=== PATIENT | male | born 1965 | race Caucasian/White ===

== ENCOUNTER 2017-07-22 13:30 | Emergency (ER) | payer MEDICAID ==
[~2017-07-22] VITALS: Ht 170.2 cm; Wt 77.3 kg
[~2017-07-22 13:30] MED LIST: ACAM333T8 PO; AMYL1CAP56 PO; CHLO25CA10 PO; CITA-278 PO; DISU250T7 PO; FOLI1TAB16 PO; GABA-532 PO; HYDR-569 PO; INSU100V11 SQ; LANTUS SUBCUT; MULT-1179 PO; NICO-687 TD; PANT-47 PO; THI100T PO
[2017-07-22 13:52] VITALS: BP 134/86
[2017-07-22] MEDS ORDERED: insulin regular, human 10 units/0.1 ml syringe IV ONE (14:15)
[2017-07-22] MEDS ORDERED: normal saline 1000ML IV soln IV ONE (14:15)
[2017-07-22] MEDS ORDERED: insulin regular, human 10 units/0.1 ml syringe SQ ONE (14:40)
[2017-07-22] MEDS ORDERED: acetaminophen 325mg tablet PO ONE (14:50)
[2017-07-23] MEDS ORDERED: QUET300T19 (04:37)
[2017-07-23] MEDS ORDERED: TRAZ-146 (04:37)
[2017-07-23] MEDS ORDERED: LISI40TA4 (04:37)
[2017-07-23] MEDS ORDERED: LANTUS SQ (04:37)
[2017-07-23] MEDS ORDERED: INSU100C10 SQ (04:37)
== END 2017-07-22 15:37 | disposition left against medical advice (07) ==
LOC: ER 13:31
DX: E11.65 Type 2 diabetes mellitus with hyperglycemia (principal); E86.0 Dehydration; Z87.442 Personal history of urinary calculi; Z79.4 Long term (current) use of insulin; Z88.5 Allergy status to narcotic agent
CPT/HCPCS: 82948; 93005; 96372; 99283; J1815; J7030

== ENCOUNTER 2017-07-23 02:07 | Inpatient (IN) | payer MEDICAID ==
[~2017-07-23] VITALS: Ht 175.3 cm; Wt 72.7 kg
[2017-07-23] MEDS ORDERED: famotidine/PF 10 mg/ml inj IV ONE (02:40)
[2017-07-23] MEDS ORDERED: normal saline 1000ML IV soln IVB ONE ×3 (02:40→04:05)
[2017-07-23] MEDS ORDERED: ondansetron/PF 4mg/2ml inj IV ONE (02:40)
[2017-07-23 03:19] LABS: PROTHROMBIN TIME 10.4 SECONDS (9.0-12.0)
[2017-07-23 03:26] LABS: BASOPHILS % (AUTO) 0 % (0-1); EOSINOPHILS % (AUTO) 0 % (0-6); HEMATOCRIT 45.7 % (42.0-52.0); HEMOGLOBIN 15.4 g/dl (14.0-17.9); LYMPHOCYTES # (AUTO) 0.6 X10'3 (1.1-4.8); LYMPHOCYTES % (AUTO) 4.3 % (21-51); MEAN CORPUSCULAR HEMOGLOBIN 28.6 PG (27.0-31.0); MEAN CORPUSCULAR HGB CONC 33.8 % (33.0-36.5); MEAN CORPUSCULAR VOLUME 84.7 FL (78-98); MEAN PLATELET VOLUME 10.9 FL (7.4-10.4); MONOCYTES # (AUTO) 0.6 X10'3 (0-0.9); MONOCYTES % (AUTO) 3.7 % (2-12); NEUTROPHILS # (AUTO) 13.7 X10'3 (1.8-7.7); PLATELET COUNT 271 X10'3 (140-440); RED CELL DISTRIBUTION WIDTH 13.5 % (11.5-14.5); WHITE BLOOD COUNT 14.9 X10'3 (4.5-11.0)
[2017-07-23 03:42] LABS: ALANINE AMINOTRANSFERASE 17 U/L (12-78); ALBUMIN 3.5 G/DL (3.4-5.0); ALBUMIN/GLOBULIN RATIO 0.7 (1.1-1.5); ALKALINE PHOSPHATASE 157 IU/L (46-116); ANION GAP 21 (8-16); ASPARTATE AMINO TRANSFERASE 17 U/L (10-37); BILIRUBIN,TOTAL 1.7 MG/DL (0.1-1.0); BLOOD UREA NITROGEN 41 MG/DL (7-18); BUN/CREATININE RATIO 18.2 (5.4-32.0); CALCIUM 10.8 MG/DL (8.5-10.1); CHLORIDE 80 MMOL/L (99-107); CREATININE 2.25 MG/DL (0.60-1.10); ETHANOL 0.022 GM/DL (0.0-0.010); LIPASE < 50 U/L (73-393); SODIUM 121 MMOL/L (135-145); TOTAL CARBON DIOXIDE 19.8 MMOL/L (24-32); TOTAL PROTEIN 8.7 G/DL (6.4-8.2); eGFR 31 ML/MIN
[2017-07-23 03:49] LABS: GLUCOSE 703 MG/DL (70-104); POTASSIUM 6.1 MMOL/L (3.5-5.1)
[2017-07-23] MEDS ORDERED: insulin regular, human 10 units/0.1 ml syringe IV ONE (04:05)
[2017-07-23] MEDS ORDERED: QUET300T19 (04:37)
[2017-07-23] MEDS ORDERED: LANTUS SQ (04:37)
[2017-07-23] MEDS ORDERED: LISI40TA4 (04:37)
[2017-07-23] MEDS ORDERED: TRAZ-146 (04:37)
[2017-07-23] MEDS ORDERED: INSU100C10 SQ (04:37)
[2017-07-23 05:08] LABS: URINE AMPHETAMINE SCREEN NEGATIVE (Neg); URINE BARBITUATE SCREEN NEGATIVE (Neg); URINE BENZODIAZEPINES SCREEN NEGATIVE (Neg); URINE CANNABINOID SCREEN NEGATIVE (Neg); URINE COCAINE SCREEN NEGATIVE (Neg); URINE METHADONE SCREEN NEGATIVE (Neg); URINE OPIATE SCREEN NEGATIVE (Neg); URINE PHENCYCLIDINE SCREEN NEGATIVE (Neg)
[2017-07-23] MEDS ORDERED: acetaminophen 325mg tablet PO PRN (05:25)
[2017-07-23] MEDS ORDERED: mag hydrox/Alum hydrox/simeth 30ml oral suspension PO PRN (05:25)
[2017-07-23] MEDS ORDERED: magnesium hydroxide 30ml (MOM) UD suspension PO PRN (05:25)
[2017-07-23] MEDS ORDERED: ondansetron/PF 4mg/2ml inj IV PRN (05:25)
[2017-07-23 05:30] VITALS: BP 141/88
[2017-07-23] MEDS ORDERED: MESSAGE TO PHARMACY PO ONE (05:40)
[2017-07-23] MEDS ORDERED: dextrose ORAL solution 15 GM/59 ML bottle PO PRN ×2 (05:40)
[2017-07-23] MEDS ORDERED: dextrose 50%-water 50ml dispensing syringe IV PRN ×3 (05:40→12:15)
[2017-07-23] MEDS ORDERED: glucagon, human recombinant 1mg kit SUBCUT PRN (05:40)
[2017-07-23] MEDS ORDERED: insulin glargine (Lantus) pen - multi-dose SQ ONE (05:45)
[2017-07-23] MEDS: normal saline 1000ml 1,000 ML IV SCH ×3 (05:45→23:52)
[2017-07-23] MEDS: citalopram 20mg tablet PO SCH (07:41)
[2017-07-23] MEDS: gabapentin 300mg capsule PO SCH ×2 (07:42→16:57)
[2017-07-23] MEDS: heparin, porcine 5000 units/ml vial SQ SCH ×2 (07:42→20:25)
[2017-07-23] MEDS: insulin Lispro (HumaLOG) vial - multi-dose SQ SCH (07:43)
[2017-07-23 10:08] LABS: ALBUMIN 2.7 G/DL (3.4-5.0); ANION GAP 13 (8-16); BLOOD UREA NITROGEN 32 MG/DL (7-18); BUN/CREATININE RATIO 23.4 (5.4-32.0); CALCIUM 8.8 MG/DL (8.5-10.1); CHLORIDE 97 MMOL/L (99-107); CREATININE 1.37 MG/DL (0.60-1.10); GLUCOSE 300 MG/DL (70-104); POTASSIUM 4.3 MMOL/L (3.5-5.1); SODIUM 133 MMOL/L (135-145); TOTAL CARBON DIOXIDE 23.4 MMOL/L (24-32); eGFR 55 ML/MIN
[2017-07-23 11:00] VITALS: BP 142/90
[2017-07-23] MEDS ORDERED: haloperidol lactate 5mg/ml inj IM PRN (12:15)
[2017-07-23] MEDS ORDERED: thiamine 100mg/ml 2ml inj. IV ONE (12:15)
[2017-07-23] MEDS ORDERED: thiamine inj. 100 MG in normal saline 100ml IV soln 100 ML IV ONE (12:25)
[2017-07-23 15:00] VITALS: BP 132/80
[2017-07-23 19:00] VITALS: BP 149/81
[2017-07-23] MEDS: thiamine 100mg tablet PO SCH (20:24)
[2017-07-23] MEDS ORDERED: insulin glargine (Lantus) pen - multi-dose SQ SCH (21:00)
[2017-07-23] MEDS: insulin glargine (Lantus) pen - multi-dose SQ SCH (21:00)
[2017-07-23 23:00] VITALS: BP 154/83
[2017-07-24] VITALS (7 sets, daily range): BP systolic 100–156; BP diastolic 67–90
[2017-07-24] MEDS: LORazepam 2 mg/ml vial IV PRN ×8 (02:56→22:35)
[2017-07-24] MEDS: haloperidol 5mg tablet PO PRN (04:41)
[2017-07-24 06:06] LABS: BASOPHILS % (AUTO) 0.3 % (0-1); EOSINOPHILS # (AUTO) 0.1 X10'3 (0-0.9); HEMATOCRIT 39.9 % (42.0-52.0); HEMOGLOBIN 13.6 g/dl (14.0-17.9); LYMPHOCYTES # (AUTO) 0.8 X10'3 (1.1-4.8); LYMPHOCYTES % (AUTO) 10.5 % (21-51); MEAN CORPUSCULAR HEMOGLOBIN 28.9 PG (27.0-31.0); MEAN CORPUSCULAR VOLUME 85.1 FL (78-98); MEAN PLATELET VOLUME 11.3 FL (7.4-10.4); MONOCYTES # (AUTO) 0.5 X10'3 (0-0.9); MONOCYTES % (AUTO) 6.2 % (2-12); NEUTROPHILS # (AUTO) 6.6 X10'3 (1.8-7.7); PLATELET COUNT 160 X10'3 (140-440); RED BLOOD COUNT 4.69 X10'6 (4.70-6.10); RED CELL DISTRIBUTION WIDTH 13.1 % (11.5-14.5); WHITE BLOOD COUNT 8.1 X10'3 (4.5-11.0)
[2017-07-24 06:33] LABS: ALANINE AMINOTRANSFERASE 16 U/L (12-78); ALBUMIN 2.6 G/DL (3.4-5.0); ALBUMIN/GLOBULIN RATIO 0.6 (1.1-1.5); ALKALINE PHOSPHATASE 110 IU/L (46-116); ANION GAP 10 (8-16); ASPARTATE AMINO TRANSFERASE 16 U/L (10-37); BILIRUBIN,TOTAL 1.1 MG/DL (0.1-1.0); BLOOD UREA NITROGEN 23 MG/DL (7-18); BUN/CREATININE RATIO 22.5 (5.4-32.0); CALCIUM 8.6 MG/DL (8.5-10.1); CHLORIDE 101 MMOL/L (99-107); CREATININE 1.02 MG/DL (0.60-1.10); GLUCOSE 234 MG/DL (70-104); SODIUM 136 MMOL/L (135-145); TOTAL CARBON DIOXIDE 24.6 MMOL/L (24-32); TOTAL PROTEIN 6.8 G/DL (6.4-8.2); eGFR 78 ML/MIN
[2017-07-24] MEDS: folic acid 1mg tablet PO SCH (07:22)
[2017-07-24] MEDS: thiamine 100mg tablet PO SCH ×2 (07:22→20:48)
[2017-07-24] MEDS: gabapentin 300mg capsule PO SCH ×3 (07:22→17:04)
[2017-07-24] MEDS: citalopram 20mg tablet PO SCH (07:22)
[2017-07-24] MEDS: heparin, porcine 5000 units/ml vial SQ SCH ×2 (07:23→20:48)
[2017-07-24] MEDS: insulin Lispro (HumaLOG) vial - multi-dose SQ SCH ×2 (07:33→18:51)
[2017-07-24] MEDS ORDERED: pantoprazole 40 MG vial IV ONE (14:10)
[2017-07-24] MEDS: HYDROcodone/acetaminophen 5mg/325mg tablet PO PRN ×2 (15:07→21:23)
[2017-07-24] MEDS ORDERED: clindamycin 600mg/D5W 50ml 50 ML IV ONE (17:50)
[2017-07-24] MEDS: nicotine 14mg patch - 24hr TD SCH (18:32)
[2017-07-24] MEDS: clindamycin 600mg/D5W 50ml 50 ML IV SCH (20:47)
[2017-07-24] MEDS: insulin glargine (Lantus) pen - multi-dose SQ SCH (21:18)
[2017-07-24] MEDS: normal saline 1000ml 1,000 ML IV SCH (21:25)
[2017-07-25] MEDS: gabapentin 300mg capsule PO SCH ×3 (00:08→15:26)
[2017-07-25] MEDS: LORazepam 2 mg/ml vial IV PRN ×7 (00:08→09:04)
[2017-07-25] MEDS: haloperidol 5mg tablet PO PRN (00:54)
[2017-07-25] MEDS: clindamycin 600mg/D5W 50ml 50 ML IV SCH ×4 (01:33→19:15)
[2017-07-25 03:00] VITALS: BP 163/88
[2017-07-25] MEDS: HYDROcodone/acetaminophen 5mg/325mg tablet PO PRN ×3 (04:39→17:50)
[2017-07-25 05:33] LABS: BASOPHILS % (AUTO) 0.2 % (0-1); EOSINOPHILS % (AUTO) 0.5 % (0-6); HEMATOCRIT 35.2 % (42.0-52.0); LYMPHOCYTES # (AUTO) 0.6 X10'3 (1.1-4.8); LYMPHOCYTES % (AUTO) 9.4 % (21-51); MEAN CORPUSCULAR HEMOGLOBIN 28.8 PG (27.0-31.0); MEAN CORPUSCULAR HGB CONC 34.1 % (33.0-36.5); MEAN CORPUSCULAR VOLUME 84.5 FL (78-98); MEAN PLATELET VOLUME 10.9 FL (7.4-10.4); MONOCYTES # (AUTO) 0.4 X10'3 (0-0.9); MONOCYTES % (AUTO) 5.9 % (2-12); NEUTROPHILS # (AUTO) 5.2 X10'3 (1.8-7.7); PLATELET COUNT 107 X10'3 (140-440); RED BLOOD COUNT 4.16 X10'6 (4.70-6.10); RED CELL DISTRIBUTION WIDTH 13.4 % (11.5-14.5); WHITE BLOOD COUNT 6.2 X10'3 (4.5-11.0)
[2017-07-25 06:00] VITALS: BP 141/74
[2017-07-25 06:00] LABS: ALANINE AMINOTRANSFERASE 13 U/L (12-78); ALBUMIN 2.2 G/DL (3.4-5.0); ALBUMIN/GLOBULIN RATIO 0.6 (1.1-1.5); ALKALINE PHOSPHATASE 100 IU/L (46-116); ANION GAP 12 (8-16); ASPARTATE AMINO TRANSFERASE 10 U/L (10-37); BILIRUBIN,TOTAL 0.6 MG/DL (0.1-1.0); BLOOD UREA NITROGEN 16 MG/DL (7-18); BUN/CREATININE RATIO 13.6 (5.4-32.0); CHLORIDE 96 MMOL/L (99-107); CREATININE 1.18 MG/DL (0.60-1.10); GLUCOSE 445 MG/DL (70-104); POTASSIUM 4.1 MMOL/L (3.5-5.1); SODIUM 130 MMOL/L (135-145); TOTAL CARBON DIOXIDE 22.4 MMOL/L (24-32); TOTAL PROTEIN 5.9 G/DL (6.4-8.2); eGFR 66 ML/MIN
[2017-07-25 07:09] LABS: LARGE PLATELETS FEW; PLATELET ESTIMATE DECREASED
[2017-07-25] MEDS: pantoprazole 40 MG vial IV SCH (07:28)
[2017-07-25] MEDS: nicotine 14mg patch - 24hr TD SCH (07:28)
[2017-07-25] MEDS: folic acid 1mg tablet PO SCH (07:28)
[2017-07-25] MEDS: thiamine 100mg tablet PO SCH ×2 (07:28→19:15)
[2017-07-25] MEDS: citalopram 20mg tablet PO SCH (07:28)
[2017-07-25] MEDS: heparin, porcine 5000 units/ml vial SQ SCH ×2 (07:29→19:16)
[2017-07-25] MEDS: insulin Lispro (HumaLOG) vial - multi-dose SQ SCH ×3 (08:10→19:23)
[2017-07-25 11:00] VITALS: BP 126/63
[2017-07-25] MEDS: normal saline 1000ml 1,000 ML IV SCH (11:14)
[2017-07-25] MEDS ORDERED: LORazepam 2 mg/ml vial IV PRN (12:15)
[2017-07-25] MEDS ORDERED: morphine 2 MG/ML inj. syringe IV PRN (14:50)
[2017-07-25 15:00] VITALS: BP 113/67
[2017-07-25] MEDS ORDERED: iohexol 300mg/ml 100ml inj. ONE (15:37)
[2017-07-25 19:00] VITALS: BP 129/63
[2017-07-25] MEDS: lactobacillus rhamnosus 10,000 MMU CELLS/CAPSULE PO SCH (19:15)
[2017-07-25] MEDS ORDERED: morphine 4 MG/ML inj SYRINge IV PRN (19:28)
[2017-07-25] MEDS: LORazepam 1 MG tablet PO PRN ×2 (20:42→22:37)
[2017-07-25] MEDS: morphine 4 MG/ML inj SYRINge IV PRN (21:17)
[2017-07-25 23:00] VITALS: BP 143/89
[2017-07-26] VITALS (11 sets, daily range): BP systolic 92–144; BP diastolic 53–84
[2017-07-26] MEDS: gabapentin 300mg capsule PO SCH ×3 (00:06→16:55)
[2017-07-26] MEDS: morphine 4 MG/ML inj SYRINge IV PRN ×8 (00:06→23:11)
[2017-07-26] MEDS: HYDROcodone/acetaminophen 5mg/325mg tablet PO PRN ×2 (01:11→19:20)
[2017-07-26] MEDS: normal saline 1000ml 1,000 ML IV SCH ×2 (01:12→13:16)
[2017-07-26] MEDS: clindamycin 600mg/D5W 50ml 50 ML IV SCH ×4 (01:13→20:58)
[2017-07-26 07:15] LABS: BASOPHILS % (AUTO) 0.4 % (0-1); EOSINOPHILS # (AUTO) 0.1 X10'3 (0-0.9); EOSINOPHILS % (AUTO) 1.8 % (0-6); HEMATOCRIT 34.5 % (42.0-52.0); HEMOGLOBIN 11.7 g/dl (14.0-17.9); LYMPHOCYTES # (AUTO) 0.7 X10'3 (1.1-4.8); LYMPHOCYTES % (AUTO) 8.8 % (21-51); MEAN CORPUSCULAR HEMOGLOBIN 28.9 PG (27.0-31.0); MEAN CORPUSCULAR HGB CONC 33.9 % (33.0-36.5); MEAN CORPUSCULAR VOLUME 85.2 FL (78-98); MEAN PLATELET VOLUME 10.9 FL (7.4-10.4); MONOCYTES # (AUTO) 0.6 X10'3 (0-0.9); MONOCYTES % (AUTO) 7.7 % (2-12); NEUTROPHILS # (AUTO) 6.3 X10'3 (1.8-7.7); NEUTROPHILS % (AUTO) 81.3 % (42-75); PLATELET COUNT 115 X10'3 (140-440); RED BLOOD COUNT 4.04 X10'6 (4.70-6.10); RED CELL DISTRIBUTION WIDTH 13.4 % (11.5-14.5); WHITE BLOOD COUNT 7.8 X10'3 (4.5-11.0)
[2017-07-26 07:48] LABS: ALANINE AMINOTRANSFERASE 8 U/L (12-78); ALBUMIN 1.9 G/DL (3.4-5.0); ALBUMIN/GLOBULIN RATIO 0.5 (1.1-1.5); ALKALINE PHOSPHATASE 91 IU/L (46-116); ANION GAP 8 (8-16); ASPARTATE AMINO TRANSFERASE 10 U/L (10-37); BILIRUBIN,TOTAL 0.6 MG/DL (0.1-1.0); BLOOD UREA NITROGEN 11 MG/DL (7-18); BUN/CREATININE RATIO 12.6 (5.4-32.0); CALCIUM 8.1 MG/DL (8.5-10.1); CHLORIDE 102 MMOL/L (99-107); CREATININE 0.87 MG/DL (0.60-1.10); GLUCOSE 223 MG/DL (70-104); POTASSIUM 3.6 MMOL/L (3.5-5.1); SODIUM 137 MMOL/L (135-145); TOTAL CARBON DIOXIDE 26.7 MMOL/L (24-32); TOTAL PROTEIN 5.6 G/DL (6.4-8.2); eGFR > 90 ML/MIN
[2017-07-26] MEDS: thiamine 100mg tablet PO SCH ×2 (07:50→20:57)
[2017-07-26] MEDS: folic acid 1mg tablet PO SCH (07:50)
[2017-07-26] MEDS: citalopram 20mg tablet PO SCH (07:50)
[2017-07-26] MEDS: nicotine 14mg patch - 24hr TD SCH (07:50)
[2017-07-26] MEDS: pantoprazole 40 MG vial IV SCH (07:50)
[2017-07-26] MEDS: lactobacillus rhamnosus 10,000 MMU CELLS/CAPSULE PO SCH ×2 (08:00→20:57)
[2017-07-26] MEDS ORDERED: fentaNYL/PF 50MCG/1 ML 2ML syringe ONE (11:12)
[2017-07-26] MEDS ORDERED: midazolam 2 mg/2 ml injection ONE (11:12)
[2017-07-26] MEDS ORDERED: LIDOcaine 1.5% w/epinephrine 1:200,000 5ml ampul ONE (11:16)
[2017-07-26] MEDS ORDERED: LIDOcaine 0.5% W/epiNEPHrine 1:200,000 50ml vial IJ ONE (11:17)
[2017-07-26] MEDS ORDERED: morphine 4 MG/ML inj SYRINge IV PRN ×2 (12:00)
[2017-07-26] MEDS ORDERED: ringers solution, lacted 1,000 ML IV SCH (12:00)
[2017-07-26] MEDS ORDERED: proCHLORperazine 10 MG/2 ml inj IV PRN (12:00)
[2017-07-26] MEDS ORDERED: meperidine/PF 25mg/ml syringe IV PRN ×3 (12:00)
[2017-07-26] MEDS ORDERED: ondansetron/PF 4mg/2ml inj IV PRN (12:00)
[2017-07-26] MEDS ORDERED: LIDOcaine 2% (20mg/ml) 5ml vial ONE (12:23)
[2017-07-26] MEDS ORDERED: propofol inj 20 ML IV ONE (12:23)
[2017-07-26] MEDS: insulin Lispro (HumaLOG) vial - multi-dose SQ SCH ×2 (13:50→19:15)
[2017-07-26] MEDS: insulin glargine (Lantus) pen - multi-dose SQ SCH (21:00)
[2017-07-27] MEDS: gabapentin 300mg capsule PO SCH (00:39)
[2017-07-27] MEDS: LORazepam 1 MG tablet PO PRN (00:39)
[2017-07-27] MEDS: morphine 4 MG/ML inj SYRINge IV PRN ×3 (02:24→06:51)
[2017-07-27] MEDS: clindamycin 600mg/D5W 50ml 50 ML IV SCH (02:26)
[2017-07-27 03:00] VITALS: BP 122/71
[2017-07-27 06:00] VITALS: BP 109/66
[2017-07-27 06:31] LABS: BASOPHILS % (AUTO) 0.6 % (0-1); EOSINOPHILS # (AUTO) 0.1 X10'3 (0-0.9); EOSINOPHILS % (AUTO) 2.3 % (0-6); HEMOGLOBIN 10.5 g/dl (14.0-17.9); LYMPHOCYTES # (AUTO) 0.8 X10'3 (1.1-4.8); LYMPHOCYTES % (AUTO) 13.5 % (21-51); MEAN CORPUSCULAR HEMOGLOBIN 28.8 PG (27.0-31.0); MEAN CORPUSCULAR HGB CONC 33.8 % (33.0-36.5); MEAN CORPUSCULAR VOLUME 85.1 FL (78-98); MEAN PLATELET VOLUME 10.7 FL (7.4-10.4); MONOCYTES # (AUTO) 0.5 X10'3 (0-0.9); MONOCYTES % (AUTO) 8.4 % (2-12); NEUTROPHILS # (AUTO) 4.3 X10'3 (1.8-7.7); NEUTROPHILS % (AUTO) 75.2 % (42-75); PLATELET COUNT 109 X10'3 (140-440); RED BLOOD COUNT 3.65 X10'6 (4.70-6.10); RED CELL DISTRIBUTION WIDTH 13.1 % (11.5-14.5); WHITE BLOOD COUNT 5.8 X10'3 (4.5-11.0)
[2017-07-27 06:46] LABS: ALANINE AMINOTRANSFERASE 10 U/L (12-78); ALBUMIN 1.7 G/DL (3.4-5.0); ALBUMIN/GLOBULIN RATIO 0.5 (1.1-1.5); ALKALINE PHOSPHATASE 91 IU/L (46-116); ANION GAP 5 (8-16); ASPARTATE AMINO TRANSFERASE 7 U/L (10-37); BILIRUBIN,TOTAL 0.3 MG/DL (0.1-1.0); BLOOD UREA NITROGEN 11 MG/DL (7-18); BUN/CREATININE RATIO 13.4 (5.4-32.0); CHLORIDE 100 MMOL/L (99-107); CREATININE 0.82 MG/DL (0.60-1.10); GLUCOSE 405 MG/DL (70-104); POTASSIUM 4.3 MMOL/L (3.5-5.1); SODIUM 130 MMOL/L (135-145); TOTAL CARBON DIOXIDE 25.1 MMOL/L (24-32); TOTAL PROTEIN 5.3 G/DL (6.4-8.2); eGFR > 90 ML/MIN
[2017-07-27] MEDS ORDERED: pantoprazole 40mg Tablet.DR PO SCH (07:30)
[2017-07-27] MEDS ORDERED: LORazepam 2 mg/ml vial IV PRN (12:15)
[2017-07-27] MEDS ORDERED: LORazepam 1 MG tablet PO PRN (12:15)
== END 2017-07-27 07:30 | disposition left against medical advice (07) | DRG 364 ==
LOC: ER 02:07 → ED HOLD 05:25 → PCU 3S 06:00
PROVIDERS: ADMIT Internal Medicine; ATTEND Family Medicine
PROC: 0J9F0ZZ Drainage of Left Upper Arm Subcutaneous Tissue and Fascia, Open Approach (ICD-10-PCS; principal; 2017-07-26)
DX: L03.114 Cellulitis of left upper limb (principal); E11.00 Type 2 diabetes mellitus with hyperosmolarity without nonketotic hyperglycemic-hyperosmolar coma (NKHHC); N17.9 Acute kidney failure, unspecified; E11.65 Type 2 diabetes mellitus with hyperglycemia; E87.1 Hypo-osmolality and hyponatremia; K29.20 Alcoholic gastritis without bleeding; E11.10 Type 2 diabetes mellitus with ketoacidosis without coma; E87.5 Hyperkalemia; Z53.21 Procedure and treatment not carried out due to patient leaving prior to being seen by health care provider; L02.414 Cutaneous abscess of left upper limb; F15.90 Other stimulant use, unspecified, uncomplicated; N28.9 Disorder of kidney and ureter, unspecified; F17.200 Nicotine dependence, unspecified, uncomplicated; Z88.8 Allergy status to other drugs, medicaments and biological substances; Z79.4 Long term (current) use of insulin
CPT/HCPCS: 36415; 71045; 73201; 80048; 80053; 80305; 80320; 82009; 82948; 83036; 83690; 84484; 85025; 85610; 87070; 87075; 87186; 93005; 93306; 96361; 96374; 96375; 99285; A6258; A6449; C9113; J1644; J1815; J2001; J2060; J2175; J2250; J2270; J2405; J2704; J3010; J3411; J3490; J7030; J7120; Q9967

== ENCOUNTER 2017-07-27 21:41 | Emergency (ER) | payer MEDICAID ==
[~2017-07-27 21:41] MED LIST changes: -ACAM333T8 PO; -AMYL1CAP56 PO; -CHLO25CA10 PO; -DISU250T7 PO; -FOLI1TAB16 PO; -HYDR-569 PO; +INSU100C10 SQ; -INSU100V11 SQ; +LANTUS SQ; -LANTUS SUBCUT; +LISI40TA4; -NICO-687 TD; -PANT-47 PO; +QUET300T19; -THI100T PO; +TRAZ-146
== END 2017-07-27 23:31 | disposition left against medical advice (07) ==
LOC: ER 21:41
DX: R50.9 Fever, unspecified (principal); L08.9 Local infection of the skin and subcutaneous tissue, unspecified; Z53.21 Procedure and treatment not carried out due to patient leaving prior to being seen by health care provider

== ENCOUNTER 2017-08-08 21:20 | Emergency (ER) | payer MEDICAID ==
[~2017-08-08] VITALS: Ht 175.3 cm; Wt 52.6 kg
[2017-08-08] MEDS ORDERED: LIDOcaine 1.5% w/epinephrine 1:200,000 5ml ampul IJ ONE (21:50)
[2017-08-08] MEDS ORDERED: HYDROcodone/acetaminophen 10/325mg tab PO ONE ×2 (22:05→23:05)
[2017-08-08] MEDS ORDERED: ondansetron 4mg rapidly disintigrating tab PO ONE (22:05)
[2017-08-08] MEDS ORDERED: insulin regular, human 10 units/0.1 ml syringe SQ ONE (22:20)
[2017-08-08] MEDS ORDERED: doxycycline hyclate 100mg tablet.DR PO STA (23:04)
[2017-08-08] MEDS ORDERED: cephalexin 500mg capsule PO ONE (23:05)
[2017-08-08] MEDS ORDERED: CefTRIAXone 1000mg IM Kit (w/lidocaine diluent) IM ONE (23:05)
[2017-08-08] MEDS ORDERED: DOXY100C43 PO (23:21)
[2017-08-08] MEDS ORDERED: CEPH500C2 PO (23:21)
[2017-08-08 23:48] VITALS: BP 111/57
[2017-08-09] MEDS ORDERED: IBUP-1985 PO (12:14)
== END 2017-08-08 23:57 | disposition home or self-care (01) ==
LOC: ER 21:20
DX: L02.415 Cutaneous abscess of right lower limb (principal); E11.65 Type 2 diabetes mellitus with hyperglycemia; G43.909 Migraine, unspecified, not intractable, without status migrainosus; F11.90 Opioid use, unspecified, uncomplicated; Z98.890 Other specified postprocedural states; Z88.8 Allergy status to other drugs, medicaments and biological substances; Z79.2 Long term (current) use of antibiotics; Z79.4 Long term (current) use of insulin; Z79.899 Other long term (current) drug therapy
CPT/HCPCS: 10061; 82948; 87070; 96372; 99284; A6266; A6449; J0696; J1815; J3490

== ENCOUNTER 2017-08-09 11:38 | Emergency (ER) | payer MEDICAID ==
[~2017-08-09] VITALS: Ht 175.3 cm; Wt 63.6 kg
[~2017-08-09 11:38] MED LIST changes: +CEPH500C2 PO; +DOXY100C43 PO
[2017-08-09 11:43] VITALS: BP 92/52
[2017-08-09] MEDS ORDERED: IBUP-1985 PO (12:14)
== END 2017-08-09 12:28 | disposition home or self-care (01) ==
LOC: ER 11:39
DX: L02.31 Cutaneous abscess of buttock (principal); G43.909 Migraine, unspecified, not intractable, without status migrainosus; E11.9 Type 2 diabetes mellitus without complications; F11.10 Opioid abuse, uncomplicated; Z88.6 Allergy status to analgesic agent; Z79.4 Long term (current) use of insulin
CPT/HCPCS: 99282; A6253; A6449; A6255; A6257

== ENCOUNTER 2017-08-10 13:25 | Emergency (ER) | payer MEDICAID ==
[~2017-08-10] VITALS: Ht 175.3 cm; Wt 68.2 kg
[~2017-08-10 13:25] MED LIST changes: +IBUP-1985 PO
[2017-08-10] MEDS ORDERED: LIDOcaine 40mg/ml topical solution MM ONE (13:55)
[2017-08-10] MEDS ORDERED: morphine 4 MG/ML inj SYRINge IM ONE (13:55)
[2017-08-10] MEDS ORDERED: LIDOcaine 4% (40 mg/ml) topical solution 50ml MM ONE (14:00)
[2017-08-10 14:54] VITALS: BP 116/60
== END 2017-08-10 14:55 | disposition home or self-care (01) ==
LOC: ER 13:25
DX: S71.001D Unspecified open wound, right hip, subsequent encounter (principal); G43.909 Migraine, unspecified, not intractable, without status migrainosus; E11.9 Type 2 diabetes mellitus without complications; F17.200 Nicotine dependence, unspecified, uncomplicated; Z87.442 Personal history of urinary calculi; Z86.14 Personal history of Methicillin resistant Staphylococcus aureus infection; Z98.890 Other specified postprocedural states; Z88.8 Allergy status to other drugs, medicaments and biological substances; Z79.4 Long term (current) use of insulin; Z79.899 Other long term (current) drug therapy; X58.XXXD Exposure to other specified factors, subsequent encounter
CPT/HCPCS: 96372; 99283; A6253; A6266; A6449; J2270; J2001

== ENCOUNTER 2017-09-15 13:41 | Emergency (ER) | payer MEDICAID ==
[~2017-09-15] VITALS: Ht 175.3 cm; Wt 56.7 kg
[~2017-09-15 13:41] MED LIST changes: -CEPH500C2 PO; -DOXY100C43 PO; -IBUP-1985 PO; +IBUP-1986 PO; -LISI40TA4; +LISI40TA4 PO; +PER5325T PO; -QUET300T19; +QUET300T19 PO; -TRAZ-146; +TRAZ-146 PO
[2017-09-15 14:03] VITALS: BP 123/80
== END 2017-09-15 14:30 | disposition left against medical advice (07) ==
LOC: ER 13:42
DX: Z53.21 Procedure and treatment not carried out due to patient leaving prior to being seen by health care provider (principal)

== ENCOUNTER 2017-11-03 15:02 | Inpatient (IN) | payer MEDICAID ==
[~2017-11-03] VITALS: Ht 175.3 cm; Wt 72.7 kg
[~2017-11-03 15:02] MED LIST changes: -PER5325T PO; -TRAZ-146 PO; +TRAZ-219 PO
[2017-11-03] MEDS ORDERED: normal saline 1000ml 1,000 ML IV ONE ×2 (15:10→17:30)
[2017-11-03] MEDS ORDERED: normal saline 1000ML IV soln IVB ONE (15:10)
[2017-11-03 16:26] LABS: BASOPHILS % (AUTO) 0.4 % (0-1); EOSINOPHILS # (AUTO) 0.1 X10'3 (0-0.9); EOSINOPHILS % (AUTO) 1.3 % (0-6); HEMATOCRIT 38.2 % (42.0-52.0); HEMOGLOBIN 12.9 g/dl (14.0-17.9); LYMPHOCYTES % (AUTO) 10.4 % (21-51); MEAN CORPUSCULAR HEMOGLOBIN 28.4 PG (27.0-31.0); MEAN CORPUSCULAR HGB CONC 33.8 % (33.0-36.5); MEAN CORPUSCULAR VOLUME 84.3 FL (78-98); MEAN PLATELET VOLUME 10.2 FL (7.4-10.4); MONOCYTES # (AUTO) 0.6 X10'3 (0-0.9); MONOCYTES % (AUTO) 6.2 % (2-12); NEUTROPHILS # (AUTO) 7.8 X10'3 (1.8-7.7); NEUTROPHILS % (AUTO) 81.7 % (42-75); PLATELET COUNT 172 X10'3 (140-440); RED BLOOD COUNT 4.54 X10'6 (4.70-6.10); RED CELL DISTRIBUTION WIDTH 15.1 % (11.5-14.5); WHITE BLOOD COUNT 9.5 X10'3 (4.5-11.0)
[2017-11-03 16:36] LABS: PARTIAL THROMBOPLASTIN TIME 27 SECONDS (22-32); PROTHROMBIN TIME 10.8 SECONDS (9.0-12.0)
[2017-11-03 16:46] LABS: ALANINE AMINOTRANSFERASE 14 U/L (12-78); ALBUMIN/GLOBULIN RATIO 0.7 (1.1-1.5); ALKALINE PHOSPHATASE 118 IU/L (46-116); AMYLASE 26 U/L (25-115); ANION GAP 6 (8-16); ASPARTATE AMINO TRANSFERASE 17 U/L (10-37); BILIRUBIN,TOTAL 0.5 MG/DL (0.1-1.0); BLOOD UREA NITROGEN 61 MG/DL (7-18); BUN/CREATININE RATIO 19.1 (5.4-32.0); CALCIUM 9.3 MG/DL (8.5-10.1); CHLORIDE 84 MMOL/L (99-107); CREATININE 3.19 MG/DL (0.60-1.10); ETHANOL < 0.010 GM/DL (0.0-0.010); LIPASE < 50 U/L (73-393); POTASSIUM 5.5 MMOL/L (3.5-5.1); TOTAL CARBON DIOXIDE 28.3 MMOL/L (24-32); TOTAL PROTEIN 7.1 G/DL (6.4-8.2); eGFR 21 ML/MIN
[2017-11-03 17:00] LABS: GLUCOSE 609 MG/DL (70-104); SODIUM 118 MMOL/L (135-145)
[2017-11-03] MEDS ORDERED: acetaminophen 325mg tablet PO ONE (19:25)
[2017-11-03 19:38] LABS: CLARITY,URINE Clear (Clear); COLOR,URINE Yellow (Yellow); GLUCOSE, URINE >=1000 mg/dl (Neg); KETONES,URINE Trace mg/dl (Neg); LEUKOCYTE ESTERASE ,URINE Negative (Neg); NITRITES, URINE Negative (Neg); OCCULT BLOOD,URINE Negative (Neg); PH,URINE 5.5 (4.8-8.0); PROTEIN,URINE Negative (Neg); UROBILINOGEN,URINE 0.2 E.U/dL (0.2-1.0)
[2017-11-03 19:39] LABS: UA COLLECTION TYPE FOLEY CATH
[2017-11-03 19:50] LABS: BACTERIA,URINE NONE SEEN /HPF (Neg); RBC,URINE NONE SEEN /HPF (0-2); SQUAMOUS EPITHELIAL CELL,UR FEW /LPF (FEW); WBC,URINE 0-4 /HPF (0-4)
[2017-11-03] MEDS ORDERED: morphine 2 MG/ML inj. syringe IV PRN (20:25)
[2017-11-03] MEDS ORDERED: glucagon, human recombinant 1mg kit SUBCUT PRN (20:25)
[2017-11-03] MEDS ORDERED: sodium bicarbonate (8.4%) 1 mEq/ml syringe IV ONE (20:25)
[2017-11-03] MEDS ORDERED: bisacodyl 10mg suppository rectal RC PRN (20:25)
[2017-11-03] MEDS ORDERED: acetaminophen 650mg rectal suppository RC PRN (20:25)
[2017-11-03] MEDS ORDERED: HYDROmorphone inj. 0.5 MG/0.5 ML DISP.SYRIN IV PRN ×2 (20:25)
[2017-11-03] MEDS ORDERED: dextrose 50%-water 50ml dispensing syringe IV PRN ×2 (20:25)
[2017-11-03] MEDS ORDERED: mag hydrox/Alum hydrox/simeth 30ml oral suspension PO PRN (20:25)
[2017-11-03] MEDS ORDERED: HYDROcodone/acetaminophen 5mg/325mg tablet PO PRN (20:25)
[2017-11-03] MEDS ORDERED: metoclopramide 5 mg/ml inj IV PRN (20:25)
[2017-11-03] MEDS ORDERED: MESSAGE TO PHARMACY PO ONE (20:25)
[2017-11-03] MEDS ORDERED: diphenhydrAMINE 25mg capsule PO PRN (20:25)
[2017-11-03] MEDS ORDERED: diphenhydrAMINE 50 mg/ml inj IV PRN (20:25)
[2017-11-03] MEDS ORDERED: ondansetron/PF 4mg/2ml inj IV PRN (20:25)
[2017-11-03] MEDS ORDERED: acetaminophen 325mg tablet PO PRN (20:25)
[2017-11-03] MEDS ORDERED: dextrose ORAL solution 15 GM/59 ML bottle PO PRN ×2 (20:25)
[2017-11-03] MEDS ORDERED: insulin Lispro (HumaLOG) vial - multi-dose SQ SCH (20:25)
[2017-11-03] MEDS ORDERED: magnesium hydroxide 30ml (MOM) UD suspension PO PRN (20:25)
[2017-11-03 20:52] LABS: HEMOGLOBIN A1C 10.8 % (4.5-6.2)
[2017-11-03 20:58] LABS: MAGNESIUM 2.2 MG/DL (1.5-2.4); PHOSPHORUS 4.4 MG/DL (2.3-4.5)
[2017-11-03] MEDS: normal saline 1000ml 1,000 ML IV SCH (20:58)
[2017-11-03] MEDS ORDERED: temazepam 15mg capsule PO PRN (21:00)
[2017-11-03 21:25] LABS: INR 1.1 INR; PARTIAL THROMBOPLASTIN TIME 27 SECONDS (22-32); PROTHROMBIN TIME 10.9 SECONDS (9.0-12.0)
[2017-11-03 23:50] VITALS: BP 130/69
[2017-11-04] MEDS: HYDROcodone/acetaminophen 10/325mg tab PO PRN ×4 (00:34→21:36)
[2017-11-04 04:51] LABS: BASOPHILS # (AUTO) 0.1 X10'3 (0-0.2); BASOPHILS % (AUTO) 0.6 % (0-1); EOSINOPHILS # (AUTO) 0.2 X10'3 (0-0.9); EOSINOPHILS % (AUTO) 2.1 % (0-6); HEMATOCRIT 35.2 % (42.0-52.0); HEMOGLOBIN 12.1 g/dl (14.0-17.9); LYMPHOCYTES # (AUTO) 1.4 X10'3 (1.1-4.8); LYMPHOCYTES % (AUTO) 14.6 % (21-51); MEAN CORPUSCULAR HEMOGLOBIN 28.7 PG (27.0-31.0); MEAN CORPUSCULAR HGB CONC 34.3 % (33.0-36.5); MEAN CORPUSCULAR VOLUME 83.6 FL (78-98); MEAN PLATELET VOLUME 9.8 FL (7.4-10.4); MONOCYTES # (AUTO) 0.5 X10'3 (0-0.9); MONOCYTES % (AUTO) 5.1 % (2-12); NEUTROPHILS # (AUTO) 7.4 X10'3 (1.8-7.7); NEUTROPHILS % (AUTO) 77.6 % (42-75); PLATELET COUNT 158 X10'3 (140-440); RED BLOOD COUNT 4.21 X10'6 (4.70-6.10); RED CELL DISTRIBUTION WIDTH 14.9 % (11.5-14.5); WHITE BLOOD COUNT 9.6 X10'3 (4.5-11.0)
[2017-11-04 05:07] LABS: ALANINE AMINOTRANSFERASE 12 U/L (12-78); ALBUMIN 2.5 G/DL (3.4-5.0); ALBUMIN/GLOBULIN RATIO 0.7 (1.1-1.5); ALKALINE PHOSPHATASE 102 IU/L (46-116); ANION GAP 4 (8-16); ASPARTATE AMINO TRANSFERASE 16 U/L (10-37); BILIRUBIN,TOTAL 0.3 MG/DL (0.1-1.0); BLOOD UREA NITROGEN 50 MG/DL (7-18); CALCIUM 8.5 MG/DL (8.5-10.1); CHLORIDE 100 MMOL/L (99-107); CREATININE 1.92 MG/DL (0.60-1.10); GLUCOSE 104 MG/DL (70-104); POTASSIUM 3.8 MMOL/L (3.5-5.1); SODIUM 135 MMOL/L (135-145); TOTAL CARBON DIOXIDE 30.9 MMOL/L (24-32); TOTAL PROTEIN 6.1 G/DL (6.4-8.2); eGFR 37 ML/MIN
[2017-11-04] MEDS: normal saline 1000ml 1,000 ML IV SCH ×3 (06:25→17:38)
[2017-11-04 07:00] VITALS: BP 132/61
[2017-11-04] MEDS: pantoprazole 40mg Tablet.DR PO SCH (09:31)
[2017-11-04] MEDS: docusate sod 100mg capsule PO SCH ×2 (09:31→21:36)
[2017-11-04] MEDS: insulin Lispro (HumaLOG) vial - multi-dose SQ SCH ×3 (13:08→21:51)
[2017-11-04] MEDS: morphine 2 MG/ML inj. syringe IV PRN ×2 (17:25→23:16)
[2017-11-04 19:00] VITALS: BP 147/87
[2017-11-04] MEDS ORDERED: insulin glargine (Lantus) pen - multi-dose SQ SCH (21:00)
[2017-11-04] MEDS: mupirocin 2% nasal ointment 1gm UD NS SCH (23:16)
[2017-11-05] VITALS: BP 141/79
[2017-11-05] MEDS: normal saline 1000ml 1,000 ML IV SCH (03:27)
[2017-11-05] MEDS: HYDROcodone/acetaminophen 10/325mg tab PO PRN ×2 (03:31→07:50)
[2017-11-05 04:59] LABS: BASOPHILS % (AUTO) 0.4 % (0-1); EOSINOPHILS # (AUTO) 0.1 X10'3 (0-0.9); EOSINOPHILS % (AUTO) 2.1 % (0-6); HEMATOCRIT 32.4 % (42.0-52.0); HEMOGLOBIN 11.1 g/dl (14.0-17.9); LYMPHOCYTES # (AUTO) 1.2 X10'3 (1.1-4.8); LYMPHOCYTES % (AUTO) 17.3 % (21-51); MEAN CORPUSCULAR HEMOGLOBIN 28.7 PG (27.0-31.0); MEAN CORPUSCULAR HGB CONC 34.1 % (33.0-36.5); MEAN PLATELET VOLUME 9.9 FL (7.4-10.4); MONOCYTES # (AUTO) 0.3 X10'3 (0-0.9); MONOCYTES % (AUTO) 4.9 % (2-12); NEUTROPHILS # (AUTO) 5.2 X10'3 (1.8-7.7); NEUTROPHILS % (AUTO) 75.3 % (42-75); PLATELET COUNT 135 X10'3 (140-440); RED BLOOD COUNT 3.86 X10'6 (4.70-6.10); RED CELL DISTRIBUTION WIDTH 14.4 % (11.5-14.5); WHITE BLOOD COUNT 6.8 X10'3 (4.5-11.0)
[2017-11-05 05:31] LABS: ALANINE AMINOTRANSFERASE 12 U/L (12-78); ALBUMIN 2.2 G/DL (3.4-5.0); ALBUMIN/GLOBULIN RATIO 0.6 (1.1-1.5); ALKALINE PHOSPHATASE 93 IU/L (46-116); ANION GAP 4 (8-16); ASPARTATE AMINO TRANSFERASE 6 U/L (10-37); BILIRUBIN,TOTAL 0.2 MG/DL (0.1-1.0); BLOOD UREA NITROGEN 32 MG/DL (7-18); BUN/CREATININE RATIO 22.2 (5.4-32.0); CALCIUM 7.8 MG/DL (8.5-10.1); CHLORIDE 99 MMOL/L (99-107); CREATININE 1.44 MG/DL (0.60-1.10); GLUCOSE 226 MG/DL (70-104); POTASSIUM 3.9 MMOL/L (3.5-5.1); SODIUM 131 MMOL/L (135-145); TOTAL CARBON DIOXIDE 28.3 MMOL/L (24-32); TOTAL PROTEIN 5.6 G/DL (6.4-8.2); eGFR 52 ML/MIN
[2017-11-05] MEDS: insulin Lispro (HumaLOG) vial - multi-dose SQ SCH ×2 (07:00→13:53)
[2017-11-05 08:00] VITALS: BP 151/89
[2017-11-05] MEDS: docusate sod 100mg capsule PO SCH (08:21)
[2017-11-05] MEDS: pantoprazole 40mg Tablet.DR PO SCH (08:21)
[2017-11-05] MEDS: mupirocin 2% nasal ointment 1gm UD NS SCH (08:22)
[2017-11-05] MEDS ORDERED: TRAZ-219 PO (08:42)
[2017-11-05] MEDS ORDERED: CITA-278 PO (08:42)
[2017-11-05] MEDS ORDERED: LANTUS SQ ×2 (08:42→08:50)
[2017-11-05] MEDS ORDERED: HYDR-569 PO (08:42)
[2017-11-05] MEDS ORDERED: GABA-532 PO (08:42)
[2017-11-05] MEDS ORDERED: QUET300T19 PO (08:42)
[2017-11-05] MEDS ORDERED: INSU100C10 SQ (08:49)
[2017-11-05 12:00] VITALS: BP 153/90
== END 2017-11-05 14:50 | disposition home or self-care (01) | DRG 469 ==
LOC: ER 15:02 → ED HOLD 20:25 → CMPBEDREQ 22:44 → SUR 3N 22:45
PROVIDERS: ADMIT Family Medicine; ATTEND Internal Medicine
DX: N17.9 Acute kidney failure, unspecified (principal); E11.65 Type 2 diabetes mellitus with hyperglycemia; E86.0 Dehydration; E87.1 Hypo-osmolality and hyponatremia; E87.5 Hyperkalemia; F17.210 Nicotine dependence, cigarettes, uncomplicated; F31.9 Bipolar disorder, unspecified; F11.10 Opioid abuse, uncomplicated; F10.20 Alcohol dependence, uncomplicated; I10 Essential (primary) hypertension; R10.9 Unspecified abdominal pain; G43.909 Migraine, unspecified, not intractable, without status migrainosus; G89.29 Other chronic pain; Z59.0 Homelessness; Z87.442 Personal history of urinary calculi; Z88.8 Allergy status to other drugs, medicaments and biological substances; Z79.899 Other long term (current) drug therapy; Z79.4 Long term (current) use of insulin
CPT/HCPCS: 36415; 36556; 71045; 80053; 80320; 81001; 82150; 82948; 83036; 83605; 83690; 83735; 83880; 83930; 84100; 84145; 85025; 85610; 85730; 87040; 87070; 96360; 99285; A6258; A6402; C1751; C1758; J1815; J2270; J7030

== ENCOUNTER 2018-05-03 20:33 | Inpatient (IN) | payer MEDICAID ==
[~2018-05-03] VITALS: Ht 177.8 cm; Wt 67.5 kg
[~2018-05-03 20:33] MED LIST changes: -CITA-278 PO; +CITA20TA28 PO; +HYDR-4383 PO; +LIDOcaine 2% (20 mg/ml) 5ml cardiac syringe ONE; -MULT-1179 PO; +etomidate 2mg/ml inj. ONE; +rocuronium 10mg/ml inj IV ONE
[2018-05-03] MEDS ORDERED: propofol 1000mg/100ml bottle 100 ML IV ONE ×3 (20:49→21:15)
[2018-05-03] MEDS ORDERED: etomidate 2mg/ml inj. IV ONE ×2 (20:50→21:15)
[2018-05-03] MEDS ORDERED: MIDAZolam 5mg/ml 2ml vial IV ONE ×2 (20:50→21:15)
[2018-05-03] MEDS ORDERED: LIDOcaine 2% 10ml TOPICAL JELLY (Urojet) MM ONE (20:55)
[2018-05-03] MEDS ORDERED: rocuronium 10mg/ml inj IV ONE ×2 (21:15)
[2018-05-03 21:25] LABS: ABG BASE EXCESS -5.1 mmol/L (-2.0-3.0); ABG HCO3 19.6 mmol/L (22.0-26.0); ABG OXYGEN SATURATION 99.3 % (95-98); ABG PCO2 (T) 34.8 mmHg (35.0-48.0); ABG PH (T) 7.365 (7.350-7.450); ABG PO2 (T) 376.4 mmHg (83-108); FCOHb 1.5 % (0.5-1.5); FMetHb 0.8 % (0.3-1.12); MINUTE VOLUME 7 L/min; PATIENT TEMPERATURE 36.2; PEEP 5 cm H2O; RESPIRATORY RATE 16 b/min; RESPIRATORY RATE (OBSERVED) 16 b/min; TIDAL VOLUME 400 mL; TOTAL HEMOGLOBIN 18.7 G/dl (14.0-18.0)
[2018-05-03 21:33] LABS: BASOPHILS # (AUTO) 0.1 X10'3 (0-0.2); BASOPHILS % (AUTO) 1.2 % (0-1); EOSINOPHILS % (AUTO) 0.5 % (0-6); HEMATOCRIT 49.8 % (42.0-52.0); HEMOGLOBIN 16.3 g/dl (14.0-17.9); LYMPHOCYTES # (AUTO) 2.6 X10'3 (1.1-4.8); LYMPHOCYTES % (AUTO) 28.6 % (21-51); MEAN CORPUSCULAR HGB CONC 32.8 g/dL (33.0-36.5); MEAN CORPUSCULAR VOLUME 82.4 FL (78-98); MONOCYTES # (AUTO) 0.3 X10'3 (0-0.9); MONOCYTES % (AUTO) 2.8 % (2-12); NEUTROPHILS % (AUTO) 66.9 % (42-75); PLATELET COUNT 252 X10'3 (140-440); RED BLOOD COUNT 6.04 X10'6 (4.70-6.10); RED CELL DISTRIBUTION WIDTH 16.9 % (11.5-14.5)
[2018-05-03 21:36] LABS: CLARITY,URINE CLEAR (Clear); COLOR,URINE YELLOW (Yellow); GLUCOSE, URINE >=1000 mg/dl (Neg); KETONES,URINE TRACE mg/dl (Neg); LEUKOCYTE ESTERASE ,URINE NEGATIVE (Neg); NITRITES, URINE NEGATIVE (Neg); OCCULT BLOOD,URINE SMALL (Neg); PROTEIN,URINE >=300 mg/dl (Neg); UROBILINOGEN,URINE 0.2 E.U/dL (0.2-1.0)
[2018-05-03 21:36] LABS: AMMONIA < 10 UMOL/L (11-32)
[2018-05-03 21:38] LABS: LACTIC SEPSIS 3.4 MMOL/L (0.4-2.0)
[2018-05-03 21:41] LABS: UA COLLECTION TYPE FOLEY CATH
[2018-05-03 21:42] LABS: BACTERIA,URINE FEW /HPF (Neg); HYALINE CASTS 0-3 /LPF (NEGATIVE); RBC,URINE 0-2 /HPF (0-2); SQUAMOUS EPITHELIAL CELL,UR FEW /LPF (FEW); WBC,URINE NONE SEEN /HPF (0-4)
[2018-05-03 21:47] LABS: URINE AMPHETAMINE SCREEN POSITIVE (Neg); URINE BARBITUATE SCREEN NEGATIVE (Neg); URINE BENZODIAZEPINES SCREEN NEGATIVE (Neg); URINE CANNABINOID SCREEN NEGATIVE (Neg); URINE COCAINE SCREEN NEGATIVE (Neg); URINE METHADONE SCREEN NEGATIVE (Neg); URINE OPIATE SCREEN NEGATIVE (Neg); URINE PHENCYCLIDINE SCREEN NEGATIVE (Neg)
[2018-05-03 21:54] LABS: ALANINE AMINOTRANSFERASE 17 U/L (12-78); ALBUMIN 2.4 G/DL (3.4-5.0); ALBUMIN/GLOBULIN RATIO 0.8 (1.1-1.5); ALKALINE PHOSPHATASE 124 IU/L (46-116); ANION GAP 16 (8-16); ASPARTATE AMINO TRANSFERASE 22 U/L (10-37); BILIRUBIN,TOTAL 0.4 MG/DL (0.1-1.0); BLOOD UREA NITROGEN 25 MG/DL (7-18); BUN/CREATININE RATIO 30.9 (5.4-32.0); CALCIUM 6.6 MG/DL (8.5-10.1); CHLORIDE 107 MMOL/L (99-107); CREATININE 0.81 MG/DL (0.60-1.10); GLUCOSE 211 MG/DL (70-104); SODIUM 142 MMOL/L (135-145); TOTAL CARBON DIOXIDE 18.6 MMOL/L (24-32); TOTAL PROTEIN 5.6 G/DL (6.4-8.2); eGFR > 90 ML/MIN
[2018-05-03 22:05] LABS: MAGNESIUM 1.6 MG/DL (1.5-2.4); PHOSPHORUS 3.8 MG/DL (2.3-4.5)
[2018-05-03 22:10] LABS: ACETAMINOPHEN < 2.0 UG/ML (10-30); ETHANOL 0.508 GM/DL (0.0-0.010); POTASSIUM 3.4 MMOL/L (3.5-5.1)
[2018-05-03] MEDS ORDERED: normal saline 1000ML IV soln IVB ONE (22:20)
--- NOTE | 2018-05-03 22:35 | NUR ---
due to pts state, med rec completed by looking up external med rec
--- NOTE | 2018-05-03 23:13 | NUR ---
rashaun evans about pts vs and need for increased sedation. order for versed received
[2018-05-03] MEDS ORDERED: phenobarbital inj 260 MG in normal saline 100ml IV soln 99 ML IV STA (23:14)
[2018-05-03] MEDS ORDERED: midazolam 100mg in NS 100ml 100 ML IV PRN (23:15)
[2018-05-03] MEDS ORDERED: LORazepam 2 mg/ml vial IV PRN (23:50)
[2018-05-03] MEDS ORDERED: magnesium hydroxide 30ml (MOM) UD suspension PO PRN (23:50)
[2018-05-03] MEDS ORDERED: acetaminophen 325mg tablet PO PRN ×2 (23:50)
[2018-05-03] MEDS ORDERED: pantoprazole 40 MG vial IV ONE (23:50)
[2018-05-03] MEDS ORDERED: glucagon, human recombinant 1mg kit SUBCUT PRN (23:50)
[2018-05-03] MEDS ORDERED: acetaminophen 650mg rectal suppository RC PRN (23:50)
[2018-05-03] MEDS ORDERED: dextrose 50%-water 50ml dispensing syringe IV PRN ×3 (23:50)
[2018-05-03] MEDS ORDERED: dextrose ORAL solution 15 GM/59 ML bottle PO PRN ×2 (23:50)
[2018-05-03] MEDS ORDERED: MESSAGE TO PHARMACY PO ONE (23:50)
[2018-05-03] MEDS ORDERED: potassium Cl 40MEQ/250ML bag 250 ML IV PRN ×2 (23:50)
[2018-05-03] MEDS ORDERED: ipratropium/albuterol 3ml nebule NEB PRN (23:50)
[2018-05-03] MEDS ORDERED: thiamine inj. 100 MG in normal saline 100ml IV soln 100 ML IV ONE (23:50)
[2018-05-04] VITALS (23 sets, daily range): BP systolic 86–161; BP diastolic 50–87
[2018-05-04] MEDS ORDERED: thiamine 100mg/ml 2ml inj. IV ONE (00:15)
[2018-05-04 00:20] LABS: AMYLASE 41 U/L (25-115); LIPASE < 50 U/L (73-393)
[2018-05-04] MEDS: FENTANYL-0.9 % NACL/PF 100 ML IV PRN ×3 (00:20→22:18)
[2018-05-04] MEDS: midazolam 100mg in NS 100ml 100 ML IV PRN ×3 (00:20→14:18)
[2018-05-04] MEDS: normal saline 1000ml 1,000 ML IV SCH ×3 (00:20→11:29)
--- NOTE | 2018-05-04 00:40 | NUR ---
Patient in room ED 4. I have received report from JUAN CARLOS Rose and had the opportunity to ask questions. Patient to be transferred to ICU room 2046.
--- NOTE | 2018-05-04 00:45 | NUR ---
Patient arrived to ICU 2046 via ER bed. and Milton RN from ER in attendance. Patient transferred to hospital bed with slide board. ECG, BP, SpO2, Temp york monitoring in place. school lunch monitor showing normal sinus rhythm at 84. SpO2 99%. Patient has a 8.0 ET tube secured at 23 cm at the teeth. Right femoral Quad lumen central line with Fentanyl at 25mcg/hr, Versed 2 mg/hr and normal saline 100ml/hr per provider order. Patient placed on vent with FiO2 45% TV 400, rate of 16 and peep of 5. Lung sounds clear and equal bilaterally. OG tube in place with brown to blood tinged output. York catheter in place with urine output. Patient rolled for skin check, bed bath, opti-foam in place to coccyx. soiled clothing that was cut off in ER removed from under patient. Pillows in place to off load pressure. Patient with soft restraints in place to upper limbs. pulses intact x4. Patient belongings from ER: one patient belongings bag with a [employer] cell phone and wallet with $5.00 [employer], Sate issued ID and bank card. Will send to hospital safe.
[2018-05-04] MEDS: pantoprazole 40MG/NS 100ML BAG 100 ML IV SCH ×4 (01:59→16:00)
[2018-05-04 04:11] LABS: ABG HCO3 19.5 mmol/L (22.0-26.0); ABG OXYGEN SATURATION 97.8 % (95-98); ABG PCO2 (T) 40.2 mmHg (35.0-48.0); ABG PH (T) 7.297 (7.350-7.450); ABG PO2 (T) 119.8 mmHg (83-108); ALLEN'S TEST Positive; FCOHb 0.8 % (0.5-1.5); FMetHb 0.3 % (0.3-1.12); FO2Hb 96.7 % (94-100); MINUTE VOLUME 6 L/min; PATIENT TEMPERATURE 35.7; PEEP 5 cm H2O; RESPIRATORY RATE 16 b/min; RESPIRATORY RATE (OBSERVED) 16 b/min; TIDAL VOLUME 400 mL; TOTAL HEMOGLOBIN 16.5 G/dl (14.0-18.0)
--- NOTE | 2018-05-04 04:45 | NUR ---
past medical assessment taken from prior admission, information to be confirmed when pt is extubated or next of kin in to see pt
[2018-05-04 05:40] LABS: BASOPHILS # (AUTO) 0.1 X10'3 (0-0.2); BASOPHILS % (AUTO) 0.8 % (0-1); EOSINOPHILS % (AUTO) 0.1 % (0-6); HEMATOCRIT 47.1 % (42.0-52.0); HEMOGLOBIN 15.7 g/dl (14.0-17.9); LYMPHOCYTES # (AUTO) 1.9 X10'3 (1.1-4.8); MEAN CORPUSCULAR HEMOGLOBIN 27.1 PG (27.0-31.0); MEAN CORPUSCULAR HGB CONC 33.3 g/dL (33.0-36.5); MEAN CORPUSCULAR VOLUME 81.5 FL (78-98); MONOCYTES # (AUTO) 0.4 X10'3 (0-0.9); MONOCYTES % (AUTO) 4.5 % (2-12); NEUTROPHILS # (AUTO) 6.5 X10'3 (1.8-7.7); NEUTROPHILS % (AUTO) 73.6 % (42-75); PLATELET COUNT 214 X10'3 (140-440); RED BLOOD COUNT 5.77 X10'6 (4.70-6.10); RED CELL DISTRIBUTION WIDTH 17.3 % (11.5-14.5); WHITE BLOOD COUNT 8.8 X10'3 (4.5-11.0)
--- NOTE | 2018-05-04 06:00 | NUR ---
Critical lab of positive blood cultures to Juvencio Reyna STRIP DEBURRER
--- NOTE | 2018-05-04 06:15 | NUR ---
report given to rec rn plan of care reviewed no changes in status noted
[2018-05-04 06:18] LABS: PARTIAL THROMBOPLASTIN TIME 26 SECONDS (22-32); PROTHROMBIN TIME 10.4 SECONDS (9.0-12.0)
[2018-05-04] MEDS ORDERED: vancomycin/NS 1 GM ADD-VANTAGE 250 ML IV ONE (06:25)
--- NOTE | 2018-05-04 06:30 | NUR ---
Patient in room ICU 2046. I have received report from LEONARD RN and had the opportunity to ask questions and assume patient care.
[2018-05-04 07:15] LABS: ALANINE AMINOTRANSFERASE 21 U/L (12-78); ALBUMIN 2.5 G/DL (3.4-5.0); ALBUMIN/GLOBULIN RATIO 0.7 (1.1-1.5); ALKALINE PHOSPHATASE 124 IU/L (46-116); ANION GAP 15 (8-16); ASPARTATE AMINO TRANSFERASE 24 U/L (10-37); BILIRUBIN,TOTAL 0.5 MG/DL (0.1-1.0); BLOOD UREA NITROGEN 29 MG/DL (7-18); BUN/CREATININE RATIO 32.6 (5.4-32.0); CALCIUM 7.1 MG/DL (8.5-10.1); CHLORIDE 107 MMOL/L (99-107); CREATININE 0.89 MG/DL (0.60-1.10); GLUCOSE 212 MG/DL (70-104); MAGNESIUM 1.7 MG/DL (1.5-2.4); PHOSPHORUS 4.6 MG/DL (2.3-4.5); POTASSIUM 4.2 MMOL/L (3.5-5.1); SODIUM 142 MMOL/L (135-145); TOTAL CARBON DIOXIDE 19.6 MMOL/L (24-32); TOTAL PROTEIN 5.9 G/DL (6.4-8.2); eGFR 90 ML/MIN
[2018-05-04] MEDS ORDERED: piperacillin/tazo 3.375gm/50ml 50 ML IV SCH ×2 (08:00→14:00)
[2018-05-04] MEDS: docusate sodium 100mg/10ml UD cup PO SCH ×2 (08:06→19:55)
[2018-05-04] MEDS: gabapentin 300mg capsule PO SCH ×2 (08:06→16:45)
[2018-05-04] MEDS: citalopram 20mg tablet PO SCH (08:06)
[2018-05-04] MEDS: enoxaparin 40mg/0.4ml syringe SUBCUT SCH (08:08)
--- NOTE | 2018-05-04 08:30 | NUR ---
Dr Arndt at bedside given update. Discussed dehydration and I told him I plan on running IV ABX/main line fluids at the same time as banana bag in a separate line. He states to go ahead with this plan and otherwise will not be extubating today.
--- NOTE | 2018-05-04 08:35 | NUR ---
Suspicious blister lesions found to upper left chest and neck. Shown to Dr Arndt for questionable shingles r/o. He states to put him in isolation and that he will order tests and acyclovir for shingles.
--- NOTE | 2018-05-04 08:50 | NUR ---
Pt placed in isolation.
[2018-05-04] MEDS: folic acid inj. 2 MG, thiamine inj. 100 MG, MVI, adult No.4 with vit. K 10 ML in dextro... IV SCH ×4 (09:29)
--- NOTE | 2018-05-04 13:30 | NUR ---
Dr Arndt was called to inform him I was increasing the dose of versed frequently and patient still wide awake and extremely anxious. I requested precedex for patient to help him be more calm and prevent self-extubation, MD states not to do precedex but instead add some propofol to the drips currently running. Will follow orders.
[2018-05-04] MEDS ORDERED: propofol 1000mg/100ml bottle 100 ML IV ONE (13:41)
--- NOTE | 2018-05-04 13:53 | NUR ---
Initial: Patient is intubated and sedated with acute respiratory failure after found with altered mental status. Pt has h/o uncontrolled DM, MRSA abscess, pancreatitis, IVDA, and heavy EtOH abuse. He is receiving a banana bag r/t EtOH abuse. He is NPO. MAP is below 65 per MD note. Patient has been seen on previous admits by DEE for written and verbal DM education. Previous A1C last October was 10.8 and at that time reported to RD that he takes his insulin and checks his BG as directed. Possible extubation tomorrow and NPO for now per MD. Will continue to follow. Recommend: 1. Nutrition support if prolonged intubation. 2. Advance diet as medically indicated to carb controlled when patient is extubated and alert 3. Will need reinforcement of DM education 4. Wt per rx Addendum: 05/04/18 at [address] Le[address] Amended: Links added.
[2018-05-04] MEDS: insulin Lispro (HumaLOG) vial - multi-dose SQ SCH (14:23)
[2018-05-04 14:41] LABS: HEMATOCRIT 42.9 % (42.0-52.0); HEMOGLOBIN 14.1 g/dl (14.0-17.9); MEAN CORPUSCULAR HEMOGLOBIN 26.9 PG (27.0-31.0); MEAN CORPUSCULAR HGB CONC 32.8 g/dL (33.0-36.5); MEAN CORPUSCULAR VOLUME 81.8 FL (78-98); MEAN PLATELET VOLUME 9.1 FL (7.4-10.4); PLATELET COUNT 178 X10'3 (140-440); RED BLOOD COUNT 5.25 X10'6 (4.70-6.10); RED CELL DISTRIBUTION WIDTH 16.8 % (11.5-14.5); WHITE BLOOD COUNT 10.1 X10'3 (4.5-11.0)
[2018-05-04 15:08] LABS: CHOL/HDL RATIO 2.5 (0.00-4.99); CHOLESTEROL 182 MG/DL (0-200); HDL CHOLESTEROL 72 MG/DL (35-60); LDL CHOLESTEROL 81 MG/DL (50-100); TRIGLYCERIDES 119 MG/DL (20-135)
[2018-05-04] MEDS: vancomycin/NS 1 GM ADD-VANTAGE 250 ML IV SCH ×2 (15:45→23:27)
[2018-05-04] MEDS: piperacillin/tazo 3.375gm/50ml 50 ML IV SCH (16:45)
[2018-05-04] MEDS: propofol 1000mg/100ml bottle 100 ML IV PRN (17:54)
--- NOTE | 2018-05-04 18:33 | NUR ---
Problems reprioritized. Patient report given, questions answered & plan of care reviewed with JUAN CARLOS Yee.
--- NOTE | 2018-05-04 19:32 | NUR ---
Patient in room ICU 2046. I have received report from Rosaura RANGEL and had the opportunity to ask questions and assume patient care.
[2018-05-04] MEDS: pantoprazole 40 MG vial IV SCH (19:55)
[2018-05-04] MEDS: insulin glargine (Lantus) pen - multi-dose SQ SCH (21:00)
[2018-05-04] MEDS: quetiapine 100mg tablet PO SCH (22:12)
[2018-05-05] VITALS (23 sets, daily range): BP systolic 81–145; BP diastolic 50–85
[2018-05-05] MEDS: gabapentin 300mg capsule PO SCH ×3 (00:59→16:05)
[2018-05-05] MEDS: piperacillin/tazo 3.375gm/50ml 50 ML IV SCH ×3 (00:59→16:05)
[2018-05-05] MEDS: midazolam 100mg in NS 100ml 100 ML IV PRN ×3 (01:30→23:12)
[2018-05-05] MEDS: propofol 1000mg/100ml bottle 100 ML IV PRN ×2 (01:31→14:55)
[2018-05-05] MEDS: mineral oil/petrolatum ophthal oint EACHEYE SCH ×4 (02:00→20:25)
[2018-05-05 03:08] LABS: EOSINOPHILS % (AUTO) 0.6 % (0-6); HEMOGLOBIN 12.1 g/dl (14.0-17.9); LYMPHOCYTES # (AUTO) 1.1 X10'3 (1.1-4.8); LYMPHOCYTES % (AUTO) 21.1 % (21-51); MEAN CORPUSCULAR HEMOGLOBIN 27.1 PG (27.0-31.0); MEAN CORPUSCULAR HGB CONC 33.5 g/dL (33.0-36.5); MEAN CORPUSCULAR VOLUME 81.1 FL (78-98); MEAN PLATELET VOLUME 9.2 FL (7.4-10.4); MONOCYTES # (AUTO) 0.3 X10'3 (0-0.9); MONOCYTES % (AUTO) 6.3 % (2-12); NEUTROPHILS # (AUTO) 3.7 X10'3 (1.8-7.7); PLATELET COUNT 110 X10'3 (140-440); RED BLOOD COUNT 4.45 X10'6 (4.70-6.10); RED CELL DISTRIBUTION WIDTH 16.7 % (11.5-14.5); WHITE BLOOD COUNT 5.2 X10'3 (4.5-11.0)
[2018-05-05 03:16] LABS: PARTIAL THROMBOPLASTIN TIME 29 SECONDS (22-32); PROTHROMBIN TIME 10.6 SECONDS (9.0-12.0)
[2018-05-05 03:31] LABS: ALANINE AMINOTRANSFERASE 15 U/L (12-78); ALBUMIN 2.2 G/DL (3.4-5.0); ALBUMIN/GLOBULIN RATIO 0.8 (1.1-1.5); ALKALINE PHOSPHATASE 102 IU/L (46-116); AMYLASE 44 U/L (25-115); ANION GAP 7 (8-16); ASPARTATE AMINO TRANSFERASE 15 U/L (10-37); BILIRUBIN,TOTAL 2.4 MG/DL (0.1-1.0); BLOOD UREA NITROGEN 34 MG/DL (7-18); BUN/CREATININE RATIO 37.4 (5.4-32.0); CALCIUM 8.2 MG/DL (8.5-10.1); CHLORIDE 107 MMOL/L (99-107); CREATININE 0.91 MG/DL (0.60-1.10); GLUCOSE 168 MG/DL (70-104); LIPASE < 50 U/L (73-393); MAGNESIUM 1.6 MG/DL (1.5-2.4); PHOSPHORUS 3.1 MG/DL (2.3-4.5); POTASSIUM 4.6 MMOL/L (3.5-5.1); SODIUM 140 MMOL/L (135-145); TOTAL CARBON DIOXIDE 26.5 MMOL/L (24-32); eGFR 88 ML/MIN
[2018-05-05 04:36] LABS: ABG BASE EXCESS 0.5 mmol/L (-2.0-3.0); ABG HCO3 24.2 mmol/L (22.0-26.0); ABG OXYGEN SATURATION 96.6 % (95-98); ABG PCO2 (T) 35.9 mmHg (35.0-48.0); ABG PH (T) 7.447 (7.350-7.450); ABG PO2 (T) 88.8 mmHg (83-108); ALLEN'S TEST Positive; FCOHb 0.8 % (0.5-1.5); FMetHb 0.3 % (0.3-1.12); FO2Hb 95.5 % (94-100); MINUTE VOLUME 7 L/min; PATIENT TEMPERATURE 37.1; PEEP 5 cm H2O; RESPIRATORY RATE 18 b/min; RESPIRATORY RATE (OBSERVED) 18 b/min; TIDAL VOLUME 400 mL; TOTAL HEMOGLOBIN 12.7 G/dl (14.0-18.0)
[2018-05-05] MEDS: normal saline 1000ml 1,000 ML IV SCH ×2 (05:02→17:36)
[2018-05-05] MEDS ORDERED: VANCOMYCIN LEVEL IV NR (06:30)
--- NOTE | 2018-05-05 06:34 | NUR ---
Problems reprioritized. Patient report given, questions answered & plan of care reviewed with Carolee RANGEL.
[2018-05-05] MEDS: enoxaparin 40mg/0.4ml syringe SUBCUT SCH (07:55)
[2018-05-05] MEDS: folic acid inj. 2 MG, thiamine inj. 100 MG, MVI, adult No.4 with vit. K 10 ML in dextro... IV SCH ×4 (07:56)
[2018-05-05] MEDS: citalopram 20mg tablet PO SCH (07:57)
[2018-05-05] MEDS: pantoprazole 40 MG vial IV SCH ×2 (07:57→20:25)
[2018-05-05] MEDS: docusate sodium 100mg/10ml UD cup PO SCH ×2 (07:57→20:25)
[2018-05-05] MEDS: insulin Lispro (HumaLOG) vial - multi-dose SQ SCH (08:30)
--- NOTE | 2018-05-05 10:17 | NUR ---
Pt still on vent, receiving resp. tx, unable to wean from vent at this time. Attending RN provided contact for family. SS will reach out and engage w/family for now. Addendum: 05/05/18 at 1019 by Amarilys Alejo SS Amended: Links added.
[2018-05-05] MEDS ORDERED: furosemide 40mg/4ml inj IV ONE (11:30)
[2018-05-05] MEDS: vancomycin/NS 1 GM ADD-VANTAGE 250 ML IV SCH ×3 (11:51→23:11)
--- NOTE | 2018-05-05 14:25 | NUR ---
Tube feeding consult: patient still intubated today. Needs nutrition. Recommend: 1. Continuous tube feeding using Vital AF starting at 20 ml/hr and advance by 20 ml q 8 hours to goal rate of 60 ml/hr will provide: 1440 ml volume, 1728 cals, 108 gm protein, and 1168 ml free water. 2. Additional water flush with 125 ml q 4 3. Prealbumin q / 4. Daily wts 5. Advance diet as medically indicated to carb controlled when patient is extubated and alert 6. Will need reinforcement of DM education Addendum: 05/05/18 at [address] Amended: Links added.
--- NOTE | 2018-05-05 14:45 | NUR ---
Patient in room ICU 2046. I have received report from JUAN CARLOS Zarco and had the opportunity to ask questions and assume patient care.
[2018-05-05] MEDS: FENTANYL-0.9 % NACL/PF 100 ML IV PRN (14:54)
--- NOTE | 2018-05-05 16:33 | NUR ---
Pt started on tube feeding per rec therapist recs and md order. Vital AF started at 20 mls/hr. Also started on Humulin insulin for blood glucose 194.
--- NOTE | 2018-05-05 19:59 | NUR ---
Patient in room ICU 2046. I have received report from Kassi Weaver and had the opportunity to ask questions and assume patient care.
[2018-05-05] MEDS: insulin regular, human vial - multi-dose SQ SCH (20:29)
[2018-05-05] MEDS: quetiapine 100mg tablet PO SCH (21:26)
[2018-05-05] MEDS: insulin glargine (Lantus) pen - multi-dose SQ SCH (21:32)
[2018-05-06] VITALS (24 sets, daily range): BP systolic 72–145; BP diastolic 42–81
[2018-05-06] MEDS: piperacillin/tazo 3.375gm/50ml 50 ML IV SCH ×3 (00:32→16:46)
[2018-05-06] MEDS: gabapentin 300mg capsule PO SCH ×4 (00:33→23:59)
[2018-05-06] MEDS: normal saline 1000ml 1,000 ML IV SCH ×3 (01:50→20:51)
[2018-05-06] MEDS: mineral oil/petrolatum ophthal oint EACHEYE SCH ×4 (03:02→19:23)
[2018-05-06 03:34] LABS: PARTIAL THROMBOPLASTIN TIME 31 SECONDS (22-32)
[2018-05-06 03:35] LABS: ALANINE AMINOTRANSFERASE 15 U/L (12-78); ALBUMIN 1.9 G/DL (3.4-5.0); ALBUMIN/GLOBULIN RATIO 0.7 (1.1-1.5); ALKALINE PHOSPHATASE 122 IU/L (46-116); AMYLASE 33 U/L (25-115); ANION GAP 3 (8-16); ASPARTATE AMINO TRANSFERASE 20 U/L (10-37); BILIRUBIN,TOTAL 1.3 MG/DL (0.1-1.0); BLOOD UREA NITROGEN 24 MG/DL (7-18); BUN/CREATININE RATIO 27.6 (5.4-32.0); CALCIUM 7.8 MG/DL (8.5-10.1); CHLORIDE 105 MMOL/L (99-107); CREATININE 0.87 MG/DL (0.60-1.10); GLUCOSE 137 MG/DL (70-104); LIPASE < 50 U/L (73-393); MAGNESIUM 1.4 MG/DL (1.5-2.4); PHOSPHORUS 3.7 MG/DL (2.3-4.5); SODIUM 137 MMOL/L (135-145); TOTAL CARBON DIOXIDE 29.1 MMOL/L (24-32); TOTAL PROTEIN 4.8 G/DL (6.4-8.2); eGFR > 90 ML/MIN
[2018-05-06 03:37] LABS: BASOPHILS % (AUTO) 0.6 % (0-1); EOSINOPHILS # (AUTO) 0.1 X10'3 (0-0.9); EOSINOPHILS % (AUTO) 1.6 % (0-6); HEMATOCRIT 31.4 % (42.0-52.0); HEMOGLOBIN 10.6 g/dl (14.0-17.9); LYMPHOCYTES % (AUTO) 26.5 % (21-51); MEAN CORPUSCULAR HEMOGLOBIN 27.6 PG (27.0-31.0); MEAN CORPUSCULAR HGB CONC 33.8 g/dL (33.0-36.5); MEAN CORPUSCULAR VOLUME 81.5 FL (78-98); MEAN PLATELET VOLUME 8.9 FL (7.4-10.4); MONOCYTES # (AUTO) 0.2 X10'3 (0-0.9); MONOCYTES % (AUTO) 4.6 % (2-12); NEUTROPHILS # (AUTO) 2.6 X10'3 (1.8-7.7); NEUTROPHILS % (AUTO) 66.7 % (42-75); PLATELET COUNT 93 X10'3 (140-440); RED BLOOD COUNT 3.86 X10'6 (4.70-6.10); RED CELL DISTRIBUTION WIDTH 16.6 % (11.5-14.5); WHITE BLOOD COUNT 3.9 X10'3 (4.5-11.0)
--- NOTE | 2018-05-06 03:41 | NUR ---
lab called with a critical potassium of 3.0 called YAKLEIN Reyna and informed her fo the critical value, replacement orders already in place, no new orders at this time
[2018-05-06] MEDS ORDERED: NORepinephrine 8mg/ 250ml NS 250 ML IV SCH (04:10)
[2018-05-06] MEDS: potassium Cl oral solution 20 MEQ/15 ML OGT SCH ×3 (04:25→11:43)
[2018-05-06 04:26] LABS: ABG BASE EXCESS 4.6 mmol/L (-2.0-3.0); ABG HCO3 28.4 mmol/L (22.0-26.0); ABG OXYGEN SATURATION 96.9 % (95-98); ABG PCO2 (T) 38.2 mmHg (35.0-48.0); ABG PH (T) 7.488 (7.350-7.450); ABG PO2 (T) 89.1 mmHg (83-108); FCOHb 0.2 % (0.5-1.5); FO2Hb 96.7 % (94-100); MINUTE VOLUME 8 L/min; PATIENT TEMPERATURE 36.5; PEEP 5 cm H2O; RESPIRATORY RATE 18 b/min; RESPIRATORY RATE (OBSERVED) 18 b/min; TIDAL VOLUME 400 mL; TOTAL HEMOGLOBIN 11.3 G/dl (14.0-18.0)
[2018-05-06] MEDS: propofol 1000mg/100ml bottle 100 ML IV PRN (06:27)
--- NOTE | 2018-05-06 06:59 | NUR ---
Problems reprioritized. Patient report given, questions answered & plan of care reviewed with Teodora RANGEL.
[2018-05-06] MEDS: vancomycin/NS 1 GM ADD-VANTAGE 250 ML IV SCH ×3 (08:44→23:59)
[2018-05-06] MEDS: folic acid inj. 2 MG, thiamine inj. 100 MG, MVI, adult No.4 with vit. K 10 ML in dextro... IV SCH ×4 (08:44)
[2018-05-06] MEDS: enoxaparin 40mg/0.4ml syringe SUBCUT SCH (08:45)
[2018-05-06] MEDS: citalopram 20mg tablet PO SCH (08:45)
[2018-05-06] MEDS: pantoprazole 40 MG vial IV SCH ×2 (08:45→20:41)
[2018-05-06] MEDS: docusate sodium 100mg/10ml UD cup PO SCH ×2 (08:45→20:00)
[2018-05-06] MEDS: insulin regular, human vial - multi-dose SQ SCH ×3 (09:05→20:48)
[2018-05-06] MEDS: midazolam 100mg in NS 100ml 100 ML IV PRN ×2 (09:33→20:40)
[2018-05-06] MEDS ORDERED: magnesium 4gm in 100ml NS 100 ML IV PRN (10:45)
[2018-05-06] MEDS ORDERED: magnesium Cl slow-release 64mg tablet PO PRN (10:45)
[2018-05-06] MEDS ORDERED: magnesium 2GM in 50ml NS 50 ML IV PRN (10:45)
[2018-05-06] MEDS: FENTANYL-0.9 % NACL/PF 100 ML IV PRN (12:53)
--- NOTE | 2018-05-06 13:00 | NUR ---
Repositioning patient, repositioned ETT and unbuttoned pt. gown on left shoulder to put on a new gown. Pt. had round open area where the ETT had been resting on upper L chest. Picture taken, foam dressing applied. Addendum: 05/06/18 at 1640 by Teodora Peña RN After further investigation it was found that the round open area on pt.'s L upper chest was a pre-existing blister caused by possible shingles that had popped and opened up. Picture is taken, foam dressing applied to protect area.
--- NOTE | 2018-05-06 16:52 | NUR ---
Unable to place PICC line x 4 attempts to right brachial and basilic veins. Good blood return but unable to thread wire past approximately 8-10 cm. Left side also attempted x 3 brachial and basilic veins with same results as the right. Difficult access--unusually hard to push needle through tissues on all attempts. New needle used x [address] Arndt and Dr. Dhaliwal notified. Addendum: 05/06/18 at 1700 by Patricia Puri RN Amended: Links added.
--- NOTE | 2018-05-06 18:35 | NUR ---
Problems reprioritized. Patient report given, questions answered & plan of care reviewed with JUAN CARLOS Yee.
--- NOTE | 2018-05-06 18:42 | NUR ---
Problems reprioritized. Patient report given, questions answered & plan of care reviewed with JUAN CARLOS Yee.
[2018-05-06] MEDS: quetiapine 100mg tablet PO SCH (20:41)
[2018-05-06] MEDS: insulin glargine (Lantus) pen - multi-dose SQ SCH (20:48)
[2018-05-07] VITALS (24 sets, daily range): BP systolic 90–191; BP diastolic 53–107
[2018-05-07] MEDS: piperacillin/tazo 3.375gm/50ml 50 ML IV SCH ×2 (00:39→10:43)
[2018-05-07] MEDS: mineral oil/petrolatum ophthal oint EACHEYE SCH ×4 (03:42→20:00)
[2018-05-07] MEDS: insulin regular, human vial - multi-dose SQ SCH ×2 (03:44→08:47)
[2018-05-07 04:00] LABS: ABG BASE EXCESS 0.2 mmol/L (-2.0-3.0); ABG HCO3 24.4 mmol/L (22.0-26.0); ABG OXYGEN SATURATION 96.8 % (95-98); ABG PCO2 (T) 37.3 mmHg (35.0-48.0); ABG PH (T) 7.431 (7.350-7.450); ABG PO2 (T) 92.7 mmHg (83-108); ALLEN'S TEST Positive; FCOHb 0.3 % (0.5-1.5); FO2Hb 96.5 % (94-100); PATIENT TEMPERATURE 36.7; PEEP 5 cm H2O; RESPIRATORY RATE 18 b/min; RESPIRATORY RATE (OBSERVED) 18 b/min; TIDAL VOLUME 400 mL
[2018-05-07 04:20] LABS: BASOPHILS % (AUTO) 0.6 % (0-1); EOSINOPHILS # (AUTO) 0.1 X10'3 (0-0.9); EOSINOPHILS % (AUTO) 1.5 % (0-6); HEMATOCRIT 31.3 % (42.0-52.0); HEMOGLOBIN 10.1 g/dl (14.0-17.9); LYMPHOCYTES # (AUTO) 0.9 X10'3 (1.1-4.8); LYMPHOCYTES % (AUTO) 26.9 % (21-51); MEAN CORPUSCULAR HEMOGLOBIN 26.8 PG (27.0-31.0); MEAN CORPUSCULAR HGB CONC 32.3 g/dL (33.0-36.5); MEAN PLATELET VOLUME 9.2 FL (7.4-10.4); MONOCYTES # (AUTO) 0.2 X10'3 (0-0.9); MONOCYTES % (AUTO) 6.1 % (2-12); NEUTROPHILS # (AUTO) 2.3 X10'3 (1.8-7.7); NEUTROPHILS % (AUTO) 64.9 % (42-75); PLATELET COUNT 88 X10'3 (140-440); RED BLOOD COUNT 3.77 X10'6 (4.70-6.10); RED CELL DISTRIBUTION WIDTH 16.9 % (11.5-14.5); WHITE BLOOD COUNT 3.5 X10'3 (4.5-11.0)
[2018-05-07 04:25] LABS: INR 0.9 INR; PARTIAL THROMBOPLASTIN TIME 28 SECONDS (22-32); PROTHROMBIN TIME 9.5 SECONDS (9.0-12.0)
[2018-05-07 04:30] LABS: ALANINE AMINOTRANSFERASE 19 U/L (12-78); ALBUMIN 1.9 G/DL (3.4-5.0); ALBUMIN/GLOBULIN RATIO 0.6 (1.1-1.5); ALKALINE PHOSPHATASE 111 IU/L (46-116); AMYLASE 35 U/L (25-115); ANION GAP 4 (8-16); ASPARTATE AMINO TRANSFERASE 21 U/L (10-37); BILIRUBIN,TOTAL 0.5 MG/DL (0.1-1.0); BLOOD UREA NITROGEN 17 MG/DL (7-18); BUN/CREATININE RATIO 22.1 (5.4-32.0); CALCIUM 7.7 MG/DL (8.5-10.1); CHLORIDE 107 MMOL/L (99-107); CREATININE 0.77 MG/DL (0.60-1.10); GLUCOSE 173 MG/DL (70-104); LIPASE < 50 U/L (73-393); MAGNESIUM 2.1 MG/DL (1.5-2.4); PHOSPHORUS 3.5 MG/DL (2.3-4.5); POTASSIUM 4.1 MMOL/L (3.5-5.1); PREALBUMIN 11.8 MG/DL (19-36); SODIUM 138 MMOL/L (135-145); TOTAL CARBON DIOXIDE 26.7 MMOL/L (24-32); TOTAL PROTEIN 5.1 G/DL (6.4-8.2); eGFR > 90 ML/MIN
[2018-05-07] MEDS: propofol 1000mg/100ml bottle 100 ML IV PRN (05:15)
--- NOTE | 2018-05-07 06:39 | NUR ---
Problems reprioritized. Patient report given, questions answered & plan of care reviewed with Deanna RANGEL.
[2018-05-07] MEDS: docusate sodium 100mg/10ml UD cup PO SCH ×2 (07:45→20:58)
[2018-05-07] MEDS: pantoprazole 40 MG vial IV SCH ×2 (07:45→20:58)
[2018-05-07] MEDS: vancomycin/NS 1 GM ADD-VANTAGE 250 ML IV SCH (07:45)
[2018-05-07] MEDS: multivitamin oral liquid (Certavite) 5ml cup PO SCH (07:46)
[2018-05-07] MEDS: gabapentin 300mg capsule PO SCH ×2 (07:46→16:11)
[2018-05-07] MEDS: thiamine 100mg tablet PO SCH (07:46)
[2018-05-07] MEDS: folic acid 1mg tablet PO SCH (07:47)
[2018-05-07] MEDS: citalopram 20mg tablet PO SCH (07:47)
[2018-05-07] MEDS: enoxaparin 40mg/0.4ml syringe SUBCUT SCH (08:00)
[2018-05-07] MEDS: FENTANYL-0.9 % NACL/PF 100 ML IV PRN (10:43)
[2018-05-07] MEDS: midazolam 100mg in NS 100ml 100 ML IV PRN (10:46)
[2018-05-07] MEDS: dexmedetomidin/NS 400mcg/100ml 100 ML IV SCH ×2 (10:57→20:57)
[2018-05-07] MEDS: normal saline 1000ml 1,000 ML IV SCH (11:06)
[2018-05-07 16:10] LABS: HIV ANTIBODY 1&2 RAPID NON-REACTIVE (Neg)
[2018-05-07] MEDS: ampicillin inj 2 GM in normal saline 100ml IV soln 100 ML IV SCH ×2 (16:11→20:58)
--- NOTE | 2018-05-07 18:30 | NUR ---
Patient in room ICU 2046. I have received report from Deanna RANGEL and had the opportunity to ask questions and assume patient care.
--- NOTE | 2018-05-07 19:25 | NUR ---
Pt extubated himself. Mouth was suctioned. Lungs were auscultated, clear, no stridorous sounds. Pt was easily wakened. Pt answered questions appropriately. Pt is still fatigued and falls asleep quickly, but is not ceasing respirations and is maintaining an O2 sat of 97-100% on 4L NC. Pt states throat is sore, but he is able to speak in mostly normal tones without too much coarseness.
[2018-05-07 20:50] LABS: ABG BASE EXCESS 2.3 mmol/L (-2.0-3.0); ABG HCO3 26.8 mmol/L (22.0-26.0); ABG OXYGEN SATURATION 98.7 % (95-98); ABG PCO2 (T) 40.3 mmHg (35.0-48.0); ABG PH (T) 7.439 (7.350-7.450); ABG PO2 (T) 139.2 mmHg (83-108); ALLEN'S TEST Positive; FCOHb 0.1 % (0.5-1.5); FLOW 4 L/min; FMetHb 0.1 % (0.3-1.12); FO2Hb 98.5 % (94-100); PATIENT TEMPERATURE 36.6; RESPIRATORY RATE (OBSERVED) 14 b/min; TOTAL HEMOGLOBIN 12.2 G/dl (14.0-18.0)
[2018-05-07] MEDS: quetiapine 100mg tablet PO SCH (20:57)
[2018-05-07] MEDS: diatr meglu/diatrizoate 30ml oral sol.-(3 dose) bottle PO SCH (20:58)
[2018-05-07] MEDS: insulin glargine (Lantus) pen - multi-dose SQ SCH (21:45)
[2018-05-07] MEDS ORDERED: HYDROmorphone 1 mg/ml syringe IV PRN (22:50)
[2018-05-07] MEDS: HYDROmorphone inj. 0.5 MG/0.5 ML DISP.SYRIN IV PRN (23:14)
[2018-05-07 23:39] LABS: ALBUMIN 2.3 G/DL (3.4-5.0); ANION GAP 7 (8-16); BLOOD UREA NITROGEN 12 MG/DL (7-18); BUN/CREATININE RATIO 15.6 (5.4-32.0); CALCIUM 8.7 MG/DL (8.5-10.1); CHLORIDE 101 MMOL/L (99-107); CREATININE 0.77 MG/DL (0.60-1.10); GLUCOSE 213 MG/DL (70-104); POTASSIUM 4.8 MMOL/L (3.5-5.1); SODIUM 136 MMOL/L (135-145); TOTAL CARBON DIOXIDE 28.2 MMOL/L (24-32); eGFR > 90 ML/MIN
[2018-05-08] VITALS (19 sets, daily range): BP systolic 122–164; BP diastolic 70–86
[2018-05-08] MEDS: ampicillin inj 2 GM in normal saline 100ml IV soln 100 ML IV SCH ×7 (00:11→23:44)
[2018-05-08] MEDS: gabapentin 300mg capsule PO SCH ×4 (00:11→23:42)
--- NOTE | 2018-05-08 00:26 | NUR ---
Pt just stated that his insulin is still in his hotel room along with some of his clothes. I asked him which hotel and he told me it was the [facility] hotel in [place], Room [address]. He stated that he was drinking with one of his acquaintances in room 122 when he passed out. I asked him if he wanted to contact [facility] about his insulin and he stated that he would like to do so in the morning. He said that he wanted his insulin so that he could stab himself and inject the full bottle into his abdomen so that he could . I asked him why he would want to do that, and he stated that he is out on the street with no support and no services and that he really doesn't have anything to live for. I asked him if he had thought this way before, and he stated that he did last time he was out on the street. I will speak with Derek HAMLIN about the conversation and contact social group worker to talk with him in the morning.
[2018-05-08] MEDS: mineral oil/petrolatum ophthal oint EACHEYE SCH (01:58)
[2018-05-08 03:27] LABS: BASOPHILS % (AUTO) 0.5 % (0-1); EOSINOPHILS % (AUTO) 1.3 % (0-6); HEMATOCRIT 33.6 % (42.0-52.0); LYMPHOCYTES # (AUTO) 0.8 X10'3 (1.1-4.8); LYMPHOCYTES % (AUTO) 21.2 % (21-51); MEAN CORPUSCULAR HEMOGLOBIN 27.1 PG (27.0-31.0); MEAN CORPUSCULAR HGB CONC 32.9 g/dL (33.0-36.5); MEAN CORPUSCULAR VOLUME 82.2 FL (78-98); MEAN PLATELET VOLUME 9.4 FL (7.4-10.4); MONOCYTES # (AUTO) 0.2 X10'3 (0-0.9); MONOCYTES % (AUTO) 6.2 % (2-12); NEUTROPHILS # (AUTO) 2.6 X10'3 (1.8-7.7); NEUTROPHILS % (AUTO) 70.8 % (42-75); PLATELET COUNT 91 X10'3 (140-440); RED BLOOD COUNT 4.08 X10'6 (4.70-6.10); RED CELL DISTRIBUTION WIDTH 16.9 % (11.5-14.5); WHITE BLOOD COUNT 3.6 X10'3 (4.5-11.0)
[2018-05-08 03:39] LABS: PARTIAL THROMBOPLASTIN TIME 26 SECONDS (22-32); PROTHROMBIN TIME 9.8 SECONDS (9.0-12.0)
[2018-05-08 03:42] LABS: ALANINE AMINOTRANSFERASE 17 U/L (12-78); ALBUMIN 2.2 G/DL (3.4-5.0); ALBUMIN/GLOBULIN RATIO 0.6 (1.1-1.5); ALKALINE PHOSPHATASE 118 IU/L (46-116); AMYLASE 48 U/L (25-115); ANION GAP 5 (8-16); ASPARTATE AMINO TRANSFERASE 22 U/L (10-37); BILIRUBIN,TOTAL 0.6 MG/DL (0.1-1.0); BLOOD UREA NITROGEN 12 MG/DL (7-18); BUN/CREATININE RATIO 14.8 (5.4-32.0); CALCIUM 8.1 MG/DL (8.5-10.1); CHLORIDE 103 MMOL/L (99-107); CREATININE 0.81 MG/DL (0.60-1.10); GLUCOSE 178 MG/DL (70-104); LIPASE < 50 U/L (73-393); MAGNESIUM 1.6 MG/DL (1.5-2.4); PHOSPHORUS 3.4 MG/DL (2.3-4.5); POTASSIUM 4.5 MMOL/L (3.5-5.1); SODIUM 137 MMOL/L (135-145); TOTAL CARBON DIOXIDE 29.2 MMOL/L (24-32); TOTAL PROTEIN 5.8 G/DL (6.4-8.2); eGFR > 90 ML/MIN
--- NOTE | 2018-05-08 06:29 | NUR ---
Problems reprioritized. Patient report given, questions answered & plan of care reviewed with Gege RANGEL.
--- NOTE | 2018-05-08 06:30 | NUR ---
Patient in room ICU 2046. I have received report from Devendra Joy RN and had the opportunity to ask questions and assume patient care.
[2018-05-08] MEDS: diatr meglu/diatrizoate 30ml oral sol.-(3 dose) bottle PO SCH ×2 (07:40→09:10)
[2018-05-08] MEDS: thiamine 100mg tablet PO SCH (07:44)
[2018-05-08] MEDS: citalopram 20mg tablet PO SCH (07:45)
[2018-05-08] MEDS: docusate sodium 100mg/10ml UD cup PO SCH ×2 (07:46→19:38)
[2018-05-08] MEDS: multivitamin oral liquid (Certavite) 5ml cup PO SCH (07:46)
[2018-05-08] MEDS: folic acid 1mg tablet PO SCH (07:46)
[2018-05-08] MEDS: CefTRIAXone 2gm/D5W 50ml 50 ML IV SCH (07:46)
[2018-05-08] MEDS: pantoprazole 40 MG vial IV SCH (07:46)
[2018-05-08] MEDS: enoxaparin 40mg/0.4ml syringe SUBCUT SCH (08:00)
[2018-05-08] MEDS ORDERED: iohexol 300mg/ml 100ml inj. ONE (08:25)
[2018-05-08] MEDS: HYDROmorphone inj. 0.5 MG/0.5 ML DISP.SYRIN IV PRN ×2 (09:03→13:46)
--- NOTE | 2018-05-08 13:00 | NUR ---
PIV attempted x2 to right arm unsuccessful.
--- NOTE | 2018-05-08 13:00 | NUR ---
social worker consult to assess for suicide risk, low risk ascertained
[2018-05-08] MEDS: insulin Lispro (HumaLOG) vial - multi-dose SQ SCH ×2 (13:50→19:07)
--- NOTE | 2018-05-08 15:06 | NUR ---
Reassessment: Patient self-extubated last night, diet advanced this morning to carb controlled. For breakfast he drank only his milk. Appetite expected to be poor after extubation. Pending lunch intake. Not ready for education today for DM. Pt has h/o uncontrolled DM, MRSA abscess, pancreatitis, IVDA, and heavy EtOH abuse. He is receiving a banana bag r/t EtOH abuse. 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 Patient has been seen on previous admits by RD for written and verbal DM education. Previous A1C last October was 10.8 and at that time reported to RD that he takes his insulin and checks his BG as directed. Will continue to follow. Recommend: 1. Continue carb controlled diet 2. Monitor need for ONS 3. Provide written and verbal DM education 4. Wt per rx Addendum: 05/08/18 at [address] Le[address] Amended: Links added.
--- NOTE | 2018-05-08 15:56 | NUR ---
right femoral quad lumen discontinued, pressure applied for 8 mins, hemostasis achieved, pressure drsg applied, patient instructed to keep head flat on pillow, patient lifting head off pillow and again instructed x2 to leave head on pillow to prevent bleeding. york catheter discontinued.
--- NOTE | 2018-05-08 16:37 | NUR ---
Patient in room ICU 2046. I have received report from JUAN CARLOS Huerta in ICU, and had the opportunity to ask questions and assume patient care.
--- NOTE | 2018-05-08 17:30 | NUR ---
belongings packed, patient assisted to sit at edge of bed, complaining that he is having pain and not feeling well, vital signs taken stable, explained to pt that this is his first time up in 5 days he is going to feel weak, instructed to take slow breaths and not get anxious, assisted to stand, slightly unsteady on feet, stand pivot to wheel chair. transfered to 402 with all belongings, meds, via wheelchair, telemetry and RN in attendance, settled into new bed, walked with assistance of walker 10 feet, more steady. call light given
--- NOTE | 2018-05-08 18:05 | NUR ---
Pt arrived on the floor, tucked in.
--- NOTE | 2018-05-08 18:30 | NUR ---
Patient in room ORTHO 4018. I have received report from JUAN CARLOS Duff and had the opportunity to ask questions and assume patient care.
--- NOTE | 2018-05-08 18:34 | NUR ---
Problems reprioritized. Patient report given, questions answered & plan of care reviewed with Beba RANGEL.
[2018-05-08] MEDS: HYDROcodone/acetaminophen 10/325mg tab PO PRN ×2 (19:00→23:43)
[2018-05-08] MEDS ORDERED: acetaminophen 325mg tablet PO PRN ×2 (19:15)
[2018-05-08] MEDS ORDERED: LORazepam 1 MG tablet PO ONE (19:15)
[2018-05-08] MEDS: lactobacillus rhamnosus 10,000 MMU CELLS/CAPSULE PO SCH (19:37)
[2018-05-08] MEDS: quetiapine 100mg tablet PO SCH (19:38)
[2018-05-08] MEDS: insulin glargine (Lantus) pen - multi-dose SQ SCH (21:49)
[2018-05-09] MEDS: ampicillin inj 2 GM in normal saline 100ml IV soln 100 ML IV SCH ×5 (04:10→20:18)
[2018-05-09] MEDS: HYDROcodone/acetaminophen 10/325mg tab PO PRN ×5 (04:16→22:01)
[2018-05-09 06:00] VITALS: BP 160/95
--- NOTE | 2018-05-09 06:20 | NUR ---
Patient in room ORTHO 4018. I have received report from Beba RANGEL and had the opportunity to ask questions and assume patient care.
--- NOTE | 2018-05-09 06:36 | NUR ---
Patient in room ORTHO 4018. I have received report from JUAN CARLOS Duff and had the opportunity to ask questions and assume patient care.
[2018-05-09 06:51] LABS: BASOPHILS % (AUTO) 0.6 % (0-1); EOSINOPHILS % (AUTO) 1.3 % (0-6); HEMATOCRIT 36.3 % (42.0-52.0); HEMOGLOBIN 12.2 g/dl (14.0-17.9); LYMPHOCYTES # (AUTO) 0.8 X10'3 (1.1-4.8); LYMPHOCYTES % (AUTO) 23.2 % (21-51); MEAN CORPUSCULAR HEMOGLOBIN 27.4 PG (27.0-31.0); MEAN CORPUSCULAR HGB CONC 33.6 g/dL (33.0-36.5); MEAN CORPUSCULAR VOLUME 81.5 FL (78-98); MEAN PLATELET VOLUME 8.7 FL (7.4-10.4); MONOCYTES # (AUTO) 0.3 X10'3 (0-0.9); MONOCYTES % (AUTO) 7.7 % (2-12); NEUTROPHILS # (AUTO) 2.3 X10'3 (1.8-7.7); NEUTROPHILS % (AUTO) 67.2 % (42-75); PLATELET COUNT 97 X10'3 (140-440); RED BLOOD COUNT 4.46 X10'6 (4.70-6.10); RED CELL DISTRIBUTION WIDTH 16.5 % (11.5-14.5); WHITE BLOOD COUNT 3.4 X10'3 (4.5-11.0)
[2018-05-09 06:54] LABS: PARTIAL THROMBOPLASTIN TIME 27 SECONDS (22-32); PROTHROMBIN TIME 10.3 SECONDS (9.0-12.0)
[2018-05-09 07:01] LABS: ALANINE AMINOTRANSFERASE 23 U/L (12-78); ALBUMIN 2.4 G/DL (3.4-5.0); ALBUMIN/GLOBULIN RATIO 0.6 (1.1-1.5); ALKALINE PHOSPHATASE 116 IU/L (46-116); AMYLASE 46 U/L (25-115); ANION GAP 6 (8-16); ASPARTATE AMINO TRANSFERASE 23 U/L (10-37); BILIRUBIN,TOTAL 0.3 MG/DL (0.1-1.0); BLOOD UREA NITROGEN 19 MG/DL (7-18); BUN/CREATININE RATIO 21.3 (5.4-32.0); CALCIUM 8.5 MG/DL (8.5-10.1); CHLORIDE 98 MMOL/L (99-107); CREATININE 0.89 MG/DL (0.60-1.10); GLUCOSE 322 MG/DL (70-104); LIPASE < 50 U/L (73-393); MAGNESIUM 1.8 MG/DL (1.5-2.4); PHOSPHORUS 3.6 MG/DL (2.3-4.5); POTASSIUM 4.3 MMOL/L (3.5-5.1); SODIUM 132 MMOL/L (135-145); TOTAL CARBON DIOXIDE 27.6 MMOL/L (24-32); TOTAL PROTEIN 6.3 G/DL (6.4-8.2); eGFR 90 ML/MIN
[2018-05-09] MEDS: pantoprazole 40mg Tablet.DR PO SCH (07:13)
[2018-05-09] MEDS: docusate sodium 100mg/10ml UD cup PO SCH ×2 (07:14→20:00)
[2018-05-09] MEDS: multivitamin oral liquid (Certavite) 5ml cup PO SCH (07:14)
[2018-05-09] MEDS: citalopram 20mg tablet PO SCH (07:14)
[2018-05-09] MEDS: lactobacillus rhamnosus 10,000 MMU CELLS/CAPSULE PO SCH ×2 (07:14→20:18)
[2018-05-09] MEDS: gabapentin 300mg capsule PO SCH ×2 (07:15→16:40)
[2018-05-09] MEDS: folic acid 1mg tablet PO SCH (07:15)
[2018-05-09] MEDS: thiamine 100mg tablet PO SCH (07:15)
[2018-05-09] MEDS: ondansetron/PF 4mg/2ml inj IV PRN ×2 (07:34→21:08)
[2018-05-09] MEDS: enoxaparin 40mg/0.4ml syringe SUBCUT SCH (08:00)
[2018-05-09 08:12] LABS: RPR Non Reactive (Non Reactive)
[2018-05-09] MEDS: insulin Lispro (HumaLOG) vial - multi-dose SQ SCH ×3 (09:12→19:19)
[2018-05-09] MEDS: CefTRIAXone 2gm/D5W 50ml 50 ML IV SCH (09:15)
[2018-05-09 10:00] VITALS: BP 172/95
--- NOTE | 2018-05-09 10:55 | NUR ---
DM consult: Patient's A1c is 10.1. Per physical assessment ot is slightly confused however clearing up mentally. Education not appropriate at this time. Will provide DM ed once more appropriate. Pt on CHO controlled diet with documented PO intake 100% meeting nutrient needs. Will continue to follow. Recommend: 1. Continue carb controlled diet 2. Monitor need for ONS 3. Provide written and verbal DM education prior to d/c 4. Wt per rx Addendum: 05/09/18 at [address] Amended: Links added.
[2018-05-09] MEDS: LORazepam 0.5 MG tablet PO PRN ×3 (11:42→21:09)
[2018-05-09] MEDS: nicotine 21mg patch - 24 hr TD SCH (11:43)
[2018-05-09 13:10] LABS: HBSAG SCREEN Negative (Negative); HEP A AB, IGM Negative (Negative); HEP B CORE AB, IGM Negative (Negative); HEPATITIS C ANTIBODY <0.1 s/co ratio (0.0-0.9)
[2018-05-09 18:00] VITALS: BP 161/87
--- NOTE | 2018-05-09 18:28 | NUR ---
Problems reprioritized. Patient report given, questions answered & plan of care reviewed with Beba RANGEL.
--- NOTE | 2018-05-09 18:30 | NUR ---
Patient in room ORTHO 4018. I have received report from JUAN CARLOS Duff and had the opportunity to ask questions and assume patient care.
--- NOTE | 2018-05-09 19:24 | NUR ---
Security took the knife and cigarette lighters to security [place]. I am going to take his home medications to the pharmacy for lock up. He has a bag of tobacco and other tobacco related products. For now putting them in a bag in the ante room out of his reach. Going to ask my director if we can leave it there or need to throw it away.
[2018-05-09] MEDS: quetiapine 100mg tablet PO SCH (21:08)
[2018-05-09] MEDS: insulin glargine (Lantus) pen - multi-dose SQ SCH (21:16)
[2018-05-09 22:00] VITALS: BP 158/93
[2018-05-10] MEDS: ampicillin inj 2 GM in normal saline 100ml IV soln 100 ML IV SCH ×6 (00:17→21:23)
[2018-05-10] MEDS: gabapentin 300mg capsule PO SCH ×3 (00:17→16:27)
[2018-05-10] MEDS: LORazepam 0.5 MG tablet PO PRN ×6 (00:54→21:21)
[2018-05-10] MEDS: HYDROcodone/acetaminophen 10/325mg tab PO PRN ×5 (02:01→21:22)
[2018-05-10 06:00] VITALS: BP 171/91
--- NOTE | 2018-05-10 06:48 | NUR ---
Problems reprioritized. Patient report given, questions answered & plan of care reviewed with JUAN CARLOS King.
[2018-05-10] MEDS: docusate sodium 100mg/10ml UD cup PO SCH ×2 (08:00→20:00)
[2018-05-10] MEDS: enoxaparin 40mg/0.4ml syringe SUBCUT SCH (08:00)
[2018-05-10] MEDS: pantoprazole 40mg Tablet.DR PO SCH (08:16)
[2018-05-10] MEDS: CefTRIAXone 2gm/D5W 50ml 50 ML IV SCH (08:20)
[2018-05-10] MEDS: lactobacillus rhamnosus 10,000 MMU CELLS/CAPSULE PO SCH ×2 (08:21→21:22)
[2018-05-10] MEDS: multivitamin oral liquid (Certavite) 5ml cup PO SCH (08:21)
[2018-05-10] MEDS: citalopram 20mg tablet PO SCH (08:21)
[2018-05-10] MEDS: folic acid 1mg tablet PO SCH (08:21)
[2018-05-10] MEDS: thiamine 100mg tablet PO SCH (08:22)
[2018-05-10] MEDS: nicotine 21mg patch - 24 hr TD SCH (08:23)
[2018-05-10 08:34] LABS: ALANINE AMINOTRANSFERASE 23 U/L (12-78); ALBUMIN 3.2 G/DL (3.4-5.0); ALBUMIN/GLOBULIN RATIO 0.7 (1.1-1.5); ALKALINE PHOSPHATASE 131 IU/L (46-116); ANION GAP 9 (8-16); ASPARTATE AMINO TRANSFERASE 24 U/L (10-37); BILIRUBIN,TOTAL 0.3 MG/DL (0.1-1.0); BLOOD UREA NITROGEN 15 MG/DL (7-18); BUN/CREATININE RATIO 16.7 (5.4-32.0); CALCIUM 9.3 MG/DL (8.5-10.1); CHLORIDE 96 MMOL/L (99-107); GLUCOSE 262 MG/DL (70-104); POTASSIUM 4.4 MMOL/L (3.5-5.1); SODIUM 130 MMOL/L (135-145); TOTAL CARBON DIOXIDE 25.5 MMOL/L (24-32); TOTAL PROTEIN 7.9 G/DL (6.4-8.2); eGFR 89 ML/MIN
[2018-05-10] MEDS: insulin Lispro (HumaLOG) vial - multi-dose SQ SCH ×2 (08:39→19:08)
[2018-05-10 10:00] VITALS: BP 143/89
[2018-05-10 10:42] LABS: BASOPHILS % (AUTO) 0.6 % (0-1); EOSINOPHILS # (AUTO) 0.1 X10'3 (0-0.9); EOSINOPHILS % (AUTO) 1.1 % (0-6); HEMOGLOBIN 12.2 g/dl (14.0-17.9); LYMPHOCYTES # (AUTO) 1.1 X10'3 (1.1-4.8); LYMPHOCYTES % (AUTO) 22.3 % (21-51); MEAN CORPUSCULAR HEMOGLOBIN 26.8 PG (27.0-31.0); MEAN CORPUSCULAR VOLUME 81.5 FL (78-98); MEAN PLATELET VOLUME 9.9 FL (7.4-10.4); MONOCYTES # (AUTO) 0.4 X10'3 (0-0.9); MONOCYTES % (AUTO) 7.9 % (2-12); NEUTROPHILS # (AUTO) 3.3 X10'3 (1.8-7.7); NEUTROPHILS % (AUTO) 68.1 % (42-75); PLATELET COUNT 137 X10'3 (140-440); RED BLOOD COUNT 4.54 X10'6 (4.70-6.10); WHITE BLOOD COUNT 4.9 X10'3 (4.5-11.0)
[2018-05-10 10:51] LABS: PARTIAL THROMBOPLASTIN TIME 23 SECONDS (22-32); PROTHROMBIN TIME 10.3 SECONDS (9.0-12.0)
[2018-05-10 18:00] VITALS: BP 133/93
--- NOTE | 2018-05-10 18:35 | NUR ---
Problems reprioritized. Patient report given, questions answered & plan of care reviewed with JUAN CARLOS Branch.
[2018-05-10] MEDS: quetiapine 100mg tablet PO SCH (21:21)
[2018-05-10] MEDS: insulin glargine (Lantus) pen - multi-dose SQ SCH (21:23)
[2018-05-10 22:00] VITALS: BP 135/84
[2018-05-11] MEDS: ampicillin inj 2 GM in normal saline 100ml IV soln 100 ML IV SCH ×5 (00:35→15:15)
[2018-05-11] MEDS: gabapentin 300mg capsule PO SCH ×3 (00:39→15:15)
[2018-05-11] MEDS: HYDROcodone/acetaminophen 10/325mg tab PO PRN ×4 (01:36→13:48)
[2018-05-11] MEDS: LORazepam 0.5 MG tablet PO PRN ×4 (01:36→13:47)
[2018-05-11 05:52] VITALS: BP 150/95
[2018-05-11 06:57] LABS: BASOPHILS % (AUTO) 0.9 % (0-1); EOSINOPHILS # (AUTO) 0.1 X10'3 (0-0.9); HEMATOCRIT 35.3 % (42.0-52.0); HEMOGLOBIN 11.7 g/dl (14.0-17.9); LYMPHOCYTES # (AUTO) 1.2 X10'3 (1.1-4.8); LYMPHOCYTES % (AUTO) 27.7 % (21-51); MEAN CORPUSCULAR HEMOGLOBIN 27.4 PG (27.0-31.0); MEAN CORPUSCULAR HGB CONC 33.3 g/dL (33.0-36.5); MEAN CORPUSCULAR VOLUME 82.2 FL (78-98); MEAN PLATELET VOLUME 9.2 FL (7.4-10.4); MONOCYTES # (AUTO) 0.4 X10'3 (0-0.9); MONOCYTES % (AUTO) 9.4 % (2-12); NEUTROPHILS # (AUTO) 2.6 X10'3 (1.8-7.7); PLATELET COUNT 140 X10'3 (140-440); RED BLOOD COUNT 4.29 X10'6 (4.70-6.10); WHITE BLOOD COUNT 4.3 X10'3 (4.5-11.0)
[2018-05-11 07:03] LABS: INR 1.1 INR; PARTIAL THROMBOPLASTIN TIME 26 SECONDS (22-32); PROTHROMBIN TIME 10.7 SECONDS (9.0-12.0)
[2018-05-11 07:10] LABS: ALANINE AMINOTRANSFERASE 19 U/L (12-78); ALBUMIN 2.7 G/DL (3.4-5.0); ALBUMIN/GLOBULIN RATIO 0.7 (1.1-1.5); ALKALINE PHOSPHATASE 104 IU/L (46-116); ANION GAP 10 (8-16); ASPARTATE AMINO TRANSFERASE 17 U/L (10-37); BILIRUBIN,TOTAL 0.2 MG/DL (0.1-1.0); BLOOD UREA NITROGEN 18 MG/DL (7-18); BUN/CREATININE RATIO 20.7 (5.4-32.0); CALCIUM 8.9 MG/DL (8.5-10.1); CHLORIDE 102 MMOL/L (99-107); CREATININE 0.87 MG/DL (0.60-1.10); GLUCOSE 78 MG/DL (70-104); MAGNESIUM 1.9 MG/DL (1.5-2.4); POTASSIUM 3.8 MMOL/L (3.5-5.1); PREALBUMIN 19.9 MG/DL (19-36); SODIUM 138 MMOL/L (135-145); TOTAL CARBON DIOXIDE 26.1 MMOL/L (24-32); TOTAL PROTEIN 6.6 G/DL (6.4-8.2); eGFR > 90 ML/MIN
[2018-05-11] MEDS: enoxaparin 40mg/0.4ml syringe SUBCUT SCH (08:00)
[2018-05-11] MEDS: nicotine 21mg patch - 24 hr TD SCH (08:00)
[2018-05-11] MEDS: lactobacillus rhamnosus 10,000 MMU CELLS/CAPSULE PO SCH (09:36)
[2018-05-11] MEDS: folic acid 1mg tablet PO SCH (09:36)
[2018-05-11] MEDS: thiamine 100mg tablet PO SCH (09:36)
[2018-05-11] MEDS: citalopram 20mg tablet PO SCH (09:38)
[2018-05-11] MEDS: multivitamin oral liquid (Certavite) 5ml cup PO SCH (09:38)
[2018-05-11] MEDS: docusate sodium 100mg/10ml UD cup PO SCH (09:38)
[2018-05-11] MEDS: pantoprazole 40mg Tablet.DR PO SCH (09:38)
[2018-05-11 10:00] VITALS: BP 162/92
[2018-05-11] MEDS: CefTRIAXone 2gm/D5W 50ml 50 ML IV SCH (10:30)
--- NOTE | 2018-05-11 13:53 | NUR ---
DM consult: Patient's A1c is 10.1. Patient seen at bedside during lunch and given written DM education handout with verbal review and referral to free outpatient DM education class. Patient verbalized that he is "lazy" and combined with unstable living and eating patterns are barriers for him being unable to control his blood glucose. Encouraged patient to focus on one goal at a time, the first being taking his insulin as prescribed and again offered the free outpatient DM education class. He verbalized understanding of education. Pt on CHO controlled diet with documented PO intake 100% meeting nutrient needs. Will continue to follow. Recommend: 1. Continue carb controlled diet 2. Wt per rx Addendum: 05/11/18 at [address] Amended: Links added.
[2018-05-11] MEDS ORDERED: LIDOcaine 1%/PF 5ML 10 MG/ML VIAL ONE ×2 (13:54→14:29)
[2018-05-11] MEDS ORDERED: fentaNYL/PF 50MCG/1 ML 2ML syringe ONE ×2 (14:04→14:33)
--- NOTE | 2018-05-11 16:13 | NUR ---
Report called to [facility], IV removed, Tele taken off of patient.
== END 2018-05-11 16:30 | DRG 720 ==
LOC: ER 20:34 → ED HOLD 23:50 → ICU 2S 05-04 00:46 → ORTHO 4S 05-08 17:54
PROVIDERS: ADMIT Internal Medicine Critical Care Medicine; ATTEND Family Medicine
PROC: 0BH17EZ Insertion of Endotracheal Airway into Trachea, Via Natural or Artificial Opening (ICD-10-PCS; principal; 2018-05-03)
PROC: 5A1955Z Respiratory Ventilation, Greater than 96 Consecutive Hours (ICD-10-PCS; 2018-05-03)
PROC: B54BZZA Ultrasonography of Right Lower Extremity Veins, Guidance (ICD-10-PCS; 2018-05-03)
PROC: 06HM33Z Insertion of Infusion Device into Right Femoral Vein, Percutaneous Approach (ICD-10-PCS; 2018-05-03)
PROC: BW211ZZ Computerized Tomography (CT Scan) of Abdomen and Pelvis using Low Osmolar Contrast (ICD-10-PCS; 2018-05-08)
PROC: 0JH63XZ Insertion of Tunneled Vascular Access Device into Chest Subcutaneous Tissue and Fascia, Percutaneous Approach (ICD-10-PCS; 2018-05-11)
PROC: 02HV33Z Insertion of Infusion Device into Superior Vena Cava, Percutaneous Approach (ICD-10-PCS; 2018-05-11)
PROC: B548ZZA Ultrasonography of Superior Vena Cava, Guidance (ICD-10-PCS; 2018-05-11)
DX: A41.51 Sepsis due to Escherichia coli [E. coli] (principal); J96.00 Acute respiratory failure, unspecified whether with hypoxia or hypercapnia; R65.21 Severe sepsis with septic shock; G92 Toxic encephalopathy; E87.2 Acidosis; B02.9 Zoster without complications; E11.649 Type 2 diabetes mellitus with hypoglycemia without coma; A41.81 Sepsis due to Enterococcus; E11.65 Type 2 diabetes mellitus with hyperglycemia; I36.8 Other nonrheumatic tricuspid valve disorders; F11.90 Opioid use, unspecified, uncomplicated; F15.90 Other stimulant use, unspecified, uncomplicated; G43.909 Migraine, unspecified, not intractable, without status migrainosus; R32 Unspecified urinary incontinence; F10.229 Alcohol dependence with intoxication, unspecified; F17.200 Nicotine dependence, unspecified, uncomplicated; F19.10 Other psychoactive substance abuse, uncomplicated; K62.89 Other specified diseases of anus and rectum; N41.9 Inflammatory disease of prostate, unspecified; Y90.8 Blood alcohol level of 240 mg/100 ml or more; Z59.0 Homelessness; Z71.6 Tobacco abuse counseling; Z79.899 Other long term (current) drug therapy; Z87.442 Personal history of urinary calculi; Z91.19 Patient's noncompliance with other medical treatment and regimen; Z79.4 Long term (current) use of insulin; Z86.14 Personal history of Methicillin resistant Staphylococcus aureus infection
CPT/HCPCS: 31500; 36415; 36556; 36600; 70450; 71045; 74177; 76937; 77001; 80048; 80053; 80061; 80074; 80202; 80305; 80320; 80329; 81001; 82140; 82150; 82803; 82948; 83036; 83605; 83690; 83735; 84100; 84132; 84134; 84145; 84439; 84443; 84484; 85018; 85025; 85027; 85610; 85730; 86592; 86703; 86885; 86900; 86901; 87040; 87070; 87077; 87186; 93005; 93306; 93312; 93325; 94002; 94003; 94640; 94760; 96361; 96374; 97110; 97116; 97162; 97530; 99291; A9270; C1751; C9113; G0378; J0290; J0696; J1170; J1650; J1815; J1940; J2001; J2250; J2405; J2543; J2560; J2704; J3010; J3370; J3411; J3475; J3490; J7030; J7060; Q9963; Q9967

== ENCOUNTER 2018-05-22 08:58 | Outpatient (CLI) | payer MEDICAID ==
[~2018-05-22 08:58] MED LIST changes: -LIDOcaine 2% (20 mg/ml) 5ml cardiac syringe ONE; -etomidate 2mg/ml inj. ONE; -rocuronium 10mg/ml inj IV ONE
[2018-05-22] MEDS ORDERED: iohexol 300mg/ml 100ml inj. ONE (09:12)
== END 2018-05-22 23:59 | disposition home or self-care (01) ==
LOC: 64 CT 08:58
PROVIDERS: ATTEND Internal Medicine
DX: R91.1 Solitary pulmonary nodule (principal); J98.4 Other disorders of lung; I70.0 Atherosclerosis of aorta; K86.89 Other specified diseases of pancreas; I10 Essential (primary) hypertension; E11.9 Type 2 diabetes mellitus without complications; Z79.4 Long term (current) use of insulin; Z72.89 Other problems related to lifestyle
CPT/HCPCS: 71260; 74177; Q9967